=== PATIENT | female | born 1990 | race Caucasian/White ===

== ENCOUNTER 2017-10-21 19:04 | Emergency (ER) | payer OTHER ==
[~2017-10-21] VITALS: Ht 175.3 cm; Wt 140.6 kg
[~2017-10-21 19:04] MED LIST: BENZ100A PO; CETI5 PO; CITA20 PO; CLARITIN10 MG PO; DOCU100 PO; ENOX100I SC; ENOX120I SC; IBUP600 PO; IBUP800 PO; LISI20 PO; METF850 PO; OXYACE5T PO; PROM25 PO; Verotin-Gr Cap1 EACH PO
[2017-10-21] MEDS ORDERED: MEDR10 PO (21:06)
== END 2017-10-21 22:28 | disposition home or self-care (01) ==
LOC: ER 19:04
DX: G43.909 Migraine, unspecified, not intractable, without status migrainosus (principal); I10 Essential (primary) hypertension; F41.9 Anxiety disorder, unspecified; F32.9 Major depressive disorder, single episode, unspecified; F17.210 Nicotine dependence, cigarettes, uncomplicated; Z86.711 Personal history of pulmonary embolism; Z90.89 Acquired absence of other organs; Z88.8 Allergy status to other drugs, medicaments and biological substances; Z91.048 Other nonmedicinal substance allergy status; Z79.899 Other long term (current) drug therapy
CPT/HCPCS: 36415; 96361; 96374; 96375; 99284; J1170; J1200; J1885; J2550; J7030

== ENCOUNTER 2017-10-22 19:49 | Emergency (ER) | payer OTHER ==
[~2017-10-22] VITALS: Ht 175.3 cm; Wt 140.6 kg
[2017-10-22 19:12] LABS: Source, Urine Clean Catch
[2017-10-22 19:23] LABS: Appearance, Urine Clear (Clear); Bilirubin, Urine Neg (Neg); Blood, Urine 2+ (Neg); Color, Urine Yellow (P-Yellow); Glucose Qualitative, Urine 2+ (Neg); Ketones, Urine Neg (Neg); Leukocyte Esterase, Urine 1+ (Neg); Nitrite, Urine Neg (Neg); Protein, Urine 1+ (Neg); Specific Gravity, Urine 1.025 (1.003-1.022); Urobilinogen, Urine NORM (Normal)
[2017-10-22 19:43] LABS: Bacteria Not Seen /hpf; Red Blood Cells, Urine Not Seen /hpf (0-2); Squamous Epithelial Cells Not Seen /hpf (Few); White Blood Cells, Urine Not Seen /hpf (0-5)
[~2017-10-22 19:49] MED LIST changes: +MEDR10 PO
== END 2017-10-22 21:40 | disposition home or self-care (01) ==
LOC: ER 19:49
PROVIDERS: Emergency Medicine
DX: G43.909 Migraine, unspecified, not intractable, without status migrainosus (principal); F41.9 Anxiety disorder, unspecified; I10 Essential (primary) hypertension; F32.9 Major depressive disorder, single episode, unspecified; F17.210 Nicotine dependence, cigarettes, uncomplicated
CPT/HCPCS: 81001; 81025; 87086; 96361; 96374; 96375; 96376; 99284; J1170; J1200; J1885; J2550; J7030

== ENCOUNTER → 2017-11-08 | Outpatient (CLI) | payer OTHER ==
[~2017-11-08] MED LIST changes: +AMOCLA500 PO; +CYCL10 PO; +DICL25ER PO; +Keflex500 MG PO; +LETR2.5 PO; +METF500C PO; +PREPLUS CA-FE1 EACH PO; +Phenergan25 M1 PO; +Prednisone20 MG PO; +RANI150 PO; +SUCR1 PO; +Ultram50 MG PO
== END | disposition home or self-care (01) ==
LOC: LAB 14:03
DX: J02.9 Acute pharyngitis, unspecified (principal)
CPT/HCPCS: 87070

== ENCOUNTER 2017-12-03 10:38 | Emergency (ER) | payer OTHER ==
[~2017-12-03] VITALS: Ht 175.3 cm; Wt 142.9 kg
[~2017-12-03 10:38] MED LIST changes: -AMOCLA500 PO; -CYCL10 PO; -DICL25ER PO; -Keflex500 MG PO; -LETR2.5 PO; -METF500C PO; -PREPLUS CA-FE1 EACH PO; -Phenergan25 M1 PO; -Prednisone20 MG PO; -RANI150 PO; -SUCR1 PO; -Ultram50 MG PO
[2017-12-03] MEDS ORDERED: METF500C PO (10:54)
[2017-12-03 12:02] LABS: BASOPHILS ABSOLUTE AUTO 0.05 K/mm3 (0.00-0.23); BASOPHILS PERCENT AUTO 1 % (0-2); EOSINOPHILS ABSOLUTE AUTO 0.09 K/mm3 (0.00-0.68); EOSINOPHILS PERCENT AUTO 2 % (0-6); Hematocrit 43.5 % (33.0-51.0); Hemoglobin 13.8 g/dL (11.5-16.0); IMMATURE GRAN ABSOLUTE AUTO 0.02 K/mm3 (0.00-0.10); IMMATURE GRAN PERCENT AUTO 0 % (0-1); LYMPHOCYTES ABSOLUTE AUTO 1.07 K/mm3 (0.84-5.20); LYMPHOCYTES PERCENT AUTO 18 % (21-46); MONOCYTES ABSOLUTE AUTO 0.49 K/mm3 (0.16-1.47); MONOCYTES PERCENT AUTO 8 % (4-13); Mean Corpuscular HGB 25.7 pg (26.0-34.0); Mean Corpuscular HGB Conc 31.7 g/dL (31.5-36.5); Mean Corpuscular Volume 81 fL (80-100); Mean Platelet Volume 10.6 fL (9.1-12.4); NEUTROPHILS ABSOLUTE AUTO 4.13 K/mm3 (1.96-9.15); NEUTROPHILS PERCENT AUTO 71 % (41-73); Platelet Count 249 K/mm3 (150-400); RDW Standard Deviation 43.8 fL (35.1-46.3); Red Blood Cell Count 5.38 M/mm3 (3.80-5.20); White Blood Cell Count 5.85 K/mm3 (4.00-11.30)
[2017-12-03 12:20] LABS: Alanine Aminotransfer (ALT/SGP 54 U/L (12-78); Albumin, Blood 3.4 g/dL (3.4-5.0); Albumin/Globulin Ratio 0.9 (0.8-1.8); Alk Phos 127 U/L (50-136); Anion Gap 8 mmol/L (6-16); Aspartate Aminotrans (AST/SGOT 22 U/L (12-37); Bilirubin, Total 0.6 mg/dL (0.1-1.0); Blood Urea Nitrogen 12 mg/dL (8-24); Bun/Creatinine Ratio 17.9 (12.0-20.0); CO2, Blood 21 mmol/L (21-32); Calcium, Blood 8.8 mg/dL (8.5-10.1); Chloride, Blood 108 mmol/L (98-108); Creatinine, Blood 0.67 mg/dL (0.40-1.00); Globulin, Blood 3.9 g/dL (2.2-4.0); Glomerular Filtration Rate >60 (60-); Glucose, Blood 100 mg/dL (70-99); Potassium, Blood 3.9 mmol/L (3.5-5.5); Sodium, Blood 137 mmol/L (136-145); Total Protein, Blood 7.3 g/dL (6.4-8.2)
[2017-12-03] MEDS ORDERED: SUCR1 PO (13:33)
[2017-12-03] MEDS ORDERED: Keflex500 MG PO (13:33)
[2017-12-03] MEDS ORDERED: Phenergan25 M1 PO (13:33)
== END 2017-12-03 14:16 | disposition home or self-care (01) ==
LOC: ER 10:38
PROVIDERS: Psychiatry & Neurology Psychiatry
DX: R11.2 Nausea with vomiting, unspecified (principal); R10.12 Left upper quadrant pain; I10 Essential (primary) hypertension; F32.9 Major depressive disorder, single episode, unspecified; F41.9 Anxiety disorder, unspecified; E11.9 Type 2 diabetes mellitus without complications; F17.210 Nicotine dependence, cigarettes, uncomplicated; Z91.048 Other nonmedicinal substance allergy status; Z88.8 Allergy status to other drugs, medicaments and biological substances; Z88.6 Allergy status to analgesic agent; Z79.84 Long term (current) use of oral hypoglycemic drugs; Z79.899 Other long term (current) drug therapy
CPT/HCPCS: 36415; 80053; 81025; 83690; 85025; 87086; 96361; 96372; 96374; 96375; 99284; J2405; J2550; J3010; J7030

== ENCOUNTER 2017-12-12 21:42 | Emergency (ER) | payer OTHER ==
[~2017-12-12] VITALS: Ht 175.3 cm; Wt 145.2 kg
[~2017-12-12 21:42] MED LIST changes: +Keflex500 MG PO; +METF500C PO; +Phenergan25 M1 PO; +SUCR1 PO
[2017-12-12] MEDS ORDERED: RANI150 PO (21:51)
[2017-12-12] MEDS ORDERED: Ultram50 MG PO (23:30)
[2017-12-12] MEDS ORDERED: CYCL10 PO (23:30)
[2017-12-13] MEDS ORDERED: Prednisone20 MG PO (00:25)
== END 2017-12-13 01:34 | disposition home or self-care (01) ==
LOC: ER 21:42
DX: M54.41 Lumbago with sciatica, right side (principal); Z88.8 Allergy status to other drugs, medicaments and biological substances; Z79.899 Other long term (current) drug therapy; Z79.84 Long term (current) use of oral hypoglycemic drugs; G43.909 Migraine, unspecified, not intractable, without status migrainosus; I10 Essential (primary) hypertension; F32.9 Major depressive disorder, single episode, unspecified; F41.9 Anxiety disorder, unspecified; F17.210 Nicotine dependence, cigarettes, uncomplicated
CPT/HCPCS: 96372; 99283; J1200; J1885

== ENCOUNTER 2018-03-20 11:58 | Emergency (ER) | payer OTHER ==
[~2018-03-20] VITALS: Ht 175.3 cm; Wt 145.2 kg
[~2018-03-20 11:58] MED LIST changes: +CYCL10 PO; +Prednisone20 MG PO; +RANI150 PO; +Ultram50 MG PO
[2018-03-20] MEDS ORDERED: LETR2.5 PO (12:10)
[2018-03-20] MEDS ORDERED: PREPLUS CA-FE1 EACH PO (12:11)
[2018-03-20] MEDS ORDERED: AMOCLA500 PO (12:11)
== END 2018-03-20 18:15 | disposition home or self-care (01) ==
LOC: ER 11:58
DX: G43.909 Migraine, unspecified, not intractable, without status migrainosus (principal); Z91.048 Other nonmedicinal substance allergy status; Z88.8 Allergy status to other drugs, medicaments and biological substances; Z79.899 Other long term (current) drug therapy; Z79.2 Long term (current) use of antibiotics; I10 Essential (primary) hypertension; F32.9 Major depressive disorder, single episode, unspecified; F41.9 Anxiety disorder, unspecified; F17.210 Nicotine dependence, cigarettes, uncomplicated
CPT/HCPCS: 70450; 96361; 96374; 96375; 99284; J1100; J1200; J1885; J2765; J7030

== ENCOUNTER 2018-05-30 19:49 | Emergency (ER) | payer OTHER ==
[~2018-05-30] VITALS: Ht 175.3 cm; Wt 142.9 kg
[~2018-05-30 19:49] MED LIST changes: +AMOCLA500 PO; +LETR2.5 PO; +PREPLUS CA-FE1 EACH PO
[2018-05-30] MEDS ORDERED: DICL25ER PO (20:21)
[2018-05-30] MEDS ORDERED: CLARITIN10 MG PO (20:21)
[2018-05-30] MEDS ORDERED: IBUP600 PO (20:23)
[2018-05-30 20:34] LABS: BASOPHILS ABSOLUTE AUTO 0.04 K/mm3 (0.00-0.23); BASOPHILS PERCENT AUTO 1 % (0-2); EOSINOPHILS ABSOLUTE AUTO 0.12 K/mm3 (0.00-0.68); EOSINOPHILS PERCENT AUTO 2 % (0-6); Hemoglobin 13.6 g/dL (11.5-16.0); IMMATURE GRAN ABSOLUTE AUTO 0.02 K/mm3 (0.00-0.10); IMMATURE GRAN PERCENT AUTO 0 % (0-1); LYMPHOCYTES ABSOLUTE AUTO 2.29 K/mm3 (0.84-5.20); LYMPHOCYTES PERCENT AUTO 31 % (21-46); MONOCYTES ABSOLUTE AUTO 0.58 K/mm3 (0.16-1.47); MONOCYTES PERCENT AUTO 8 % (4-13); Mean Corpuscular HGB 26.5 pg (26.0-34.0); Mean Corpuscular HGB Conc 32.4 g/dL (31.5-36.5); Mean Corpuscular Volume 82 fL (80-100); Mean Platelet Volume 11.1 fL (9.1-12.4); NEUTROPHILS PERCENT AUTO 59 % (41-73); Platelet Count 264 K/mm3 (150-400); RDW Coefficient Variation 13.3 % (11.7-14.2); RDW Standard Deviation 39.8 fL (35.1-46.3); Red Blood Cell Count 5.14 M/mm3 (3.80-5.20); White Blood Cell Count 7.45 K/mm3 (4.00-11.30)
[2018-05-30 21:11] LABS: Alanine Aminotransfer (ALT/SGP 68 U/L (12-78); Albumin, Blood 3.5 g/dL (3.4-5.0); Alk Phos 122 U/L (50-136); Anion Gap 10 mmol/L (6-16); Aspartate Aminotrans (AST/SGOT 31 U/L (12-37); Bilirubin, Total 0.3 mg/dL (0.1-1.0); Blood Urea Nitrogen 14 mg/dL (8-24); Bun/Creatinine Ratio 12.3 (12.0-20.0); CO2, Blood 26 mmol/L (21-32); Chloride, Blood 104 mmol/L (98-108); Creatinine, Blood 1.14 mg/dL (0.40-1.00); Globulin, Blood 3.5 g/dL (2.2-4.0); Glomerular Filtration Rate 59 (60-); Glucose, Blood 120 mg/dL (70-99); Potassium, Blood 3.4 mmol/L (3.5-5.5); Sodium, Blood 140 mmol/L (136-145); Troponin I <0.015 ng/mL (0.000-0.040)
== END 2018-05-30 22:12 | disposition home or self-care (01) ==
LOC: ER 19:49
PROVIDERS: Emergency Medicine
DX: I80.01 Phlebitis and thrombophlebitis of superficial vessels of right lower extremity (principal); F41.9 Anxiety disorder, unspecified; R07.89 Other chest pain; E87.6 Hypokalemia; I10 Essential (primary) hypertension; F17.200 Nicotine dependence, unspecified, uncomplicated; Z91.048 Other nonmedicinal substance allergy status; Z88.8 Allergy status to other drugs, medicaments and biological substances; Z88.6 Allergy status to analgesic agent
CPT/HCPCS: 36415; 71046; 80053; 81000; 81025; 84484; 85025; 93005; 93010; 96374; 96375; 99284-25; J1885; J2060

== ENCOUNTER 2018-10-17 17:45 | Emergency (ER) | payer OTHER ==
[~2018-10-17] VITALS: Ht 175.3 cm; Wt 142.9 kg
[~2018-10-17 17:45] MED LIST changes: +DICL25ER PO
[2018-10-17] MEDS ORDERED: LORA.5 PO (18:28)
[2018-10-17] MEDS ORDERED: GABA300 PO (18:28)
[2018-10-17 21:44] LABS: Source, Urine Clean Catch
[2018-10-17 21:49] LABS: BASOPHILS ABSOLUTE AUTO 0.07 K/mm3 (0.00-0.23); BASOPHILS PERCENT AUTO 1 % (0-2); EOSINOPHILS ABSOLUTE AUTO 0.12 K/mm3 (0.00-0.68); EOSINOPHILS PERCENT AUTO 1 % (0-6); Hematocrit 42.4 % (33.0-51.0); Hemoglobin 13.7 g/dL (11.5-16.0); IMMATURE GRAN ABSOLUTE AUTO 0.02 K/mm3 (0.00-0.10); IMMATURE GRAN PERCENT AUTO 0 % (0-1); LYMPHOCYTES ABSOLUTE AUTO 2.52 K/mm3 (0.84-5.20); LYMPHOCYTES PERCENT AUTO 30 % (21-46); MONOCYTES ABSOLUTE AUTO 0.48 K/mm3 (0.16-1.47); MONOCYTES PERCENT AUTO 6 % (4-13); Mean Corpuscular HGB Conc 32.3 g/dL (31.5-36.5); Mean Corpuscular Volume 84 fL (80-100); NEUTROPHILS PERCENT AUTO 62 % (41-73); RDW Coefficient Variation 13.8 % (11.7-14.2); RDW Standard Deviation 42.4 fL (35.1-46.3); Red Blood Cell Count 5.08 M/mm3 (3.80-5.20); White Blood Cell Count 8.51 K/mm3 (4.00-11.30)
[2018-10-17 21:51] LABS: Bilirubin, Urine Neg (Neg); Blood, Urine 1+ (Neg); Glucose Qualitative, Urine Neg (Neg); Ketones, Urine Neg (Neg); Leukocyte Esterase, Urine 1+ (Neg); Mean Platelet Volume 11.1 fL (9.1-12.4); Nitrite, Urine Neg (Neg); Platelet Count 257 K/mm3 (150-400); Protein, Urine Neg (Neg); Urobilinogen, Urine NORM (Normal)
[2018-10-17 21:54] LABS: Appearance, Urine Clear (Clear); Color, Urine Yellow (P-Yellow)
[2018-10-17 21:59] LABS: Amorphous Light (0-Heavy); Bacteria Few /hpf; Mucus Light (0-Heavy); Red Blood Cells, Urine 0-2 /hpf (0-2); White Blood Cells, Urine 0-2 /hpf (0-5)
[2018-10-17 22:00] LABS: Squamous Epithelial Cells Few /hpf (Few)
[2018-10-17 22:06] LABS: Alanine Aminotransfer (ALT/SGP 44 U/L (12-78); Albumin, Blood 3.6 g/dL (3.4-5.0); Alk Phos 123 U/L (50-136); Anion Gap 9 mmol/L (6-16); Aspartate Aminotrans (AST/SGOT 19 U/L (12-37); Bilirubin, Total 0.4 mg/dL (0.1-1.0); Blood Urea Nitrogen 15 mg/dL (8-24); Bun/Creatinine Ratio 21.8 (12.0-20.0); CO2, Blood 25 mmol/L (21-32); Calcium, Blood 8.9 mg/dL (8.5-10.1); Chloride, Blood 105 mmol/L (98-108); Creatinine, Blood 0.69 mg/dL (0.40-1.00); Globulin, Blood 3.7 g/dL (2.2-4.0); Glomerular Filtration Rate >60 (60-); Glucose, Blood 123 mg/dL (70-99); Potassium, Blood 3.7 mmol/L (3.5-5.5); Sodium, Blood 139 mmol/L (136-145); Total Protein, Blood 7.3 g/dL (6.4-8.2)
== END 2018-10-17 22:25 | disposition home or self-care (01) ==
LOC: ER 17:45
PROVIDERS: Emergency Medicine
DX: M54.5 Low back pain (principal); R20.2 Paresthesia of skin; R32 Unspecified urinary incontinence; G43.909 Migraine, unspecified, not intractable, without status migrainosus; I10 Essential (primary) hypertension; F32.9 Major depressive disorder, single episode, unspecified; F41.9 Anxiety disorder, unspecified; F17.200 Nicotine dependence, unspecified, uncomplicated
CPT/HCPCS: 36415; 80053; 81001; 81025; 85025; 87086; 96374; 99284-25; J3010

== ENCOUNTER → 2019-01-07 | Outpatient (CLI) | payer OTHER ==
[~2019-01-07] MED LIST changes: +GABA300 PO; +LORA.5 PO
[2019-01-09 15:07] LABS: HPV 16 Negative (Negative); HPV 18 Negative (Negative); HPV OTHER HR TYPES Negative (Negative)
== END | disposition home or self-care (01) ==
LOC: LAB SHORT 12:24 → LAB 12:24
PROVIDERS: Obstetrics & Gynecology
DX: Z01.419 Encounter for gynecological examination (general) (routine) without abnormal findings (principal)
CPT/HCPCS: 87624; G0123

== ENCOUNTER → 2019-03-28 | Outpatient (CLI) | payer OTHER ==
[~2019-03-28] MED LIST changes: +ACETAMINOPHEN500 MG PO; +ALBU90OI INH; +Citalopram HBr20 MG PO; +Prinivil10 MG PO
== END | disposition home or self-care (01) ==
LOC: LAB 19:13 → LAB SHORT 19:13
DX: J02.9 Acute pharyngitis, unspecified (principal)
CPT/HCPCS: 87081

== ENCOUNTER 2019-06-24 18:57 | Emergency (ER) | payer OTHER ==
[~2019-06-24] VITALS: Ht 175.3 cm; Wt 140.6 kg
[~2019-06-24 18:57] MED LIST changes: -ACETAMINOPHEN500 MG PO; -ALBU90OI INH; -Citalopram HBr20 MG PO; -Prinivil10 MG PO
[2019-06-24] MEDS ORDERED: Prinivil10 MG PO (19:57)
[2019-06-24] MEDS ORDERED: LISI20 PO (19:58)
[2019-06-24] MEDS ORDERED: Citalopram HBr20 MG PO (19:58)
[2019-06-24] MEDS ORDERED: ALBU90OI INH (20:07)
[2019-06-24] MEDS ORDERED: BENZ100A PO (20:07)
[2019-06-24] MEDS ORDERED: ACETAMINOPHEN500 MG PO (20:07)
== END 2019-06-24 20:36 | disposition home or self-care (01) ==
LOC: ER 18:57
DX: J40 Bronchitis, not specified as acute or chronic (principal); Z88.8 Allergy status to other drugs, medicaments and biological substances; Z91.048 Other nonmedicinal substance allergy status; Z79.899 Other long term (current) drug therapy; G43.909 Migraine, unspecified, not intractable, without status migrainosus; I10 Essential (primary) hypertension; F32.9 Major depressive disorder, single episode, unspecified; F17.210 Nicotine dependence, cigarettes, uncomplicated; F17.290 Nicotine dependence, other tobacco product, uncomplicated
CPT/HCPCS: 71046; 96374; 99283-25; J2405

== ENCOUNTER → 2020-01-14 | Outpatient (CLI) | payer OTHER ==
[~2020-01-14] MED LIST changes: +ACETAMINOPHEN500 MG PO; +ALBU90OI INH; +Citalopram HBr20 MG PO; +Prinivil10 MG PO
[2020-01-14 13:41] LABS: Candida species (DNA Probe) Negative (NEGATIVE); G. vaginalis (DNA Probe) Negative (NEGATIVE); T. vaginalis (DNA Probe) Negative (NEGATIVE)
== END | disposition home or self-care (01) ==
LOC: LAB SHORT 10:45 → LAB 10:45
PROVIDERS: Obstetrics & Gynecology
DX: N76.0 Acute vaginitis (principal)
CPT/HCPCS: 87480; 87510; 87660

== ENCOUNTER 2020-05-28 20:47 | Emergency (ER) | payer OTHER ==
[~2020-05-28] VITALS: Ht 175.3 cm; Wt 145.2 kg
[~2020-05-28 20:47] MED LIST changes: +METFORMIN HCL500 M2 PO; +PROP10; +Ventolin/Prove6.7 GM INH
[2020-05-28 21:11] LABS: BASOPHILS ABSOLUTE AUTO 0.07 K/mm3 (0.00-0.23); BASOPHILS PERCENT AUTO 1 % (0-2); EOSINOPHILS ABSOLUTE AUTO 0.17 K/mm3 (0.00-0.68); EOSINOPHILS PERCENT AUTO 2 % (0-6); Hematocrit 44.1 % (33.0-51.0); IMMATURE GRAN ABSOLUTE AUTO 0.02 K/mm3 (0.00-0.10); IMMATURE GRAN PERCENT AUTO 0 % (0-1); LYMPHOCYTES ABSOLUTE AUTO 1.78 K/mm3 (0.84-5.20); LYMPHOCYTES PERCENT AUTO 21 % (21-46); MONOCYTES ABSOLUTE AUTO 0.51 K/mm3 (0.16-1.47); MONOCYTES PERCENT AUTO 6 % (4-13); Mean Corpuscular HGB 27.2 pg (26.0-34.0); Mean Corpuscular HGB Conc 31.7 g/dL (31.5-36.5); Mean Corpuscular Volume 86 fL (80-100); Mean Platelet Volume 10.9 fL (9.1-12.4); NEUTROPHILS ABSOLUTE AUTO 6.08 K/mm3 (1.96-9.15); NEUTROPHILS PERCENT AUTO 71 % (41-73); Platelet Count 295 K/mm3 (150-400); RDW Coefficient Variation 13.8 % (11.7-14.2); Red Blood Cell Count 5.14 M/mm3 (3.80-5.20); White Blood Cell Count 8.63 K/mm3 (4.00-11.30)
[2020-05-28 21:19] LABS: Source, Urine Clean Catch
[2020-05-28 21:21] LABS: Appearance, Urine Hazy (Clear); Bilirubin, Urine Neg (Neg); Blood, Urine 1+ (Neg); Color, Urine Yellow (P-Yellow); Glucose Qualitative, Urine Neg (Neg); Ketones, Urine Neg (Neg); Leukocyte Esterase, Urine 2+ (Neg); Nitrite, Urine Neg (Neg); Protein, Urine Neg (Neg); Urobilinogen, Urine NORM (Normal)
[2020-05-28 21:28] LABS: Amorphous Mod (0-Heavy); Bacteria Mod /hpf; Red Blood Cells, Urine 0-2 /hpf (0-2); Squamous Epithelial Cells Mod /hpf (Few)
[2020-05-28 21:35] LABS: Alanine Aminotransfer (ALT/SGP 42 U/L (12-78); Albumin, Blood 3.3 g/dL (3.4-5.0); Albumin/Globulin Ratio 0.9 (0.8-1.8); Alk Phos 112 U/L (50-136); Anion Gap 7 mmol/L (6-16); Aspartate Aminotrans (AST/SGOT 20 U/L (12-37); Bilirubin, Total 0.3 mg/dL (0.1-1.0); Blood Urea Nitrogen 15 mg/dL (8-24); Bun/Creatinine Ratio 15.4 (12.0-20.0); CO2, Blood 28 mmol/L (21-32); Chloride, Blood 104 mmol/L (98-108); Creatinine, Blood 0.97 mg/dL (0.40-1.00); Globulin, Blood 3.7 g/dL (2.2-4.0); Glomerular Filtration Rate >60 (60-); Glucose, Blood 129 mg/dL (70-99); Potassium, Blood 3.9 mmol/L (3.5-5.5); Sodium, Blood 139 mmol/L (136-145)
[2020-05-29] MEDS ORDERED: ONDA4ODT MM (00:29)
[2020-05-29] MEDS ORDERED: HYDR1TAB94 PO (00:29)
== END 2020-05-29 00:45 | disposition home or self-care (01) ==
LOC: ER 20:47
PROVIDERS: Physician Assistant
DX: K52.9 Noninfective gastroenteritis and colitis, unspecified (principal); I10 Essential (primary) hypertension; F32.9 Major depressive disorder, single episode, unspecified; F41.9 Anxiety disorder, unspecified; F17.210 Nicotine dependence, cigarettes, uncomplicated; F17.290 Nicotine dependence, other tobacco product, uncomplicated
CPT/HCPCS: 36415; 74176; 80053; 81001; 81025; 83690; 85025; 87086; 96374; 96375; 96376; 99284-25; J1885; J2405

== ENCOUNTER 2020-11-08 13:11 | Emergency (ER) | payer OTHER ==
[~2020-11-08] VITALS: Ht 175.3 cm; Wt 149.7 kg
[~2020-11-08 13:11] MED LIST changes: +HYDR1TAB94 PO; +ONDA4ODT MM
[2020-11-08 15:19] LABS: BASOPHILS ABSOLUTE AUTO 0.05 K/mm3 (0.00-0.23); BASOPHILS PERCENT AUTO 1 % (0-2); EOSINOPHILS ABSOLUTE AUTO 0.11 K/mm3 (0.00-0.68); EOSINOPHILS PERCENT AUTO 2 % (0-6); Hemoglobin 14.9 g/dL (11.5-16.0); IMMATURE GRAN ABSOLUTE AUTO 0.01 K/mm3 (0.00-0.10); IMMATURE GRAN PERCENT AUTO 0 % (0-1); LYMPHOCYTES ABSOLUTE AUTO 1.76 K/mm3 (0.84-5.20); LYMPHOCYTES PERCENT AUTO 24 % (21-46); MONOCYTES PERCENT AUTO 8 % (4-13); Mean Corpuscular HGB 26.4 pg (26.0-34.0); Mean Corpuscular HGB Conc 31.7 g/dL (31.5-36.5); Mean Corpuscular Volume 83 fL (80-100); Mean Platelet Volume 11.9 fL (9.1-12.4); NEUTROPHILS ABSOLUTE AUTO 4.96 K/mm3 (1.96-9.15); NEUTROPHILS PERCENT AUTO 66 % (41-73); Platelet Count 270 K/mm3 (150-400); RDW Coefficient Variation 13.9 % (11.7-14.2); RDW Standard Deviation 42.5 fL (35.1-46.3); Red Blood Cell Count 5.64 M/mm3 (3.80-5.20); White Blood Cell Count 7.49 K/mm3 (4.00-11.30)
[2020-11-08 15:38] LABS: Alanine Aminotransfer (ALT/SGP 85 U/L (12-78); Albumin, Blood 3.6 g/dL (3.4-5.0); Albumin/Globulin Ratio 0.9 (0.8-1.8); Alk Phos 126 U/L (50-136); Anion Gap 4 mmol/L (6-16); Aspartate Aminotrans (AST/SGOT 35 U/L (12-37); Bilirubin, Total 0.6 mg/dL (0.1-1.0); Blood Urea Nitrogen 13 mg/dL (8-24); Bun/Creatinine Ratio 17.9 (12.0-20.0); CO2, Blood 29 mmol/L (21-32); Calcium, Blood 9.1 mg/dL (8.5-10.1); Chloride, Blood 106 mmol/L (98-108); Creatinine, Blood 0.73 mg/dL (0.40-1.00); Globulin, Blood 3.9 g/dL (2.2-4.0); Glomerular Filtration Rate >60 (60-); Glucose, Blood 137 mg/dL (70-99); Potassium, Blood 3.6 mmol/L (3.5-5.5); Sodium, Blood 139 mmol/L (136-145); Total Protein, Blood 7.5 g/dL (6.4-8.2)
[2020-11-08] MEDS ORDERED: NYSTATIN15 GM TOP (18:48)
[2021-01-31] MEDS ORDERED: Macrobid 100 M100 MG PO (22:34)
== END 2020-11-08 19:18 | disposition home or self-care (01) ==
LOC: ER 13:11
PROVIDERS: Physician Assistant
DX: B37.2 Candidiasis of skin and nail (principal); I10 Essential (primary) hypertension; F17.200 Nicotine dependence, unspecified, uncomplicated; Z79.84 Long term (current) use of oral hypoglycemic drugs; Z79.899 Other long term (current) drug therapy; Z91.09 Other allergy status, other than to drugs and biological substances; Z88.6 Allergy status to analgesic agent; Z88.8 Allergy status to other drugs, medicaments and biological substances
CPT/HCPCS: 36415; 80053; 83605; 85025; 86140; 99284; A9270

== ENCOUNTER 2020-12-23 19:07 | Emergency (ER) | payer OTHER ==
[~2020-12-23] VITALS: Ht 175.3 cm; Wt 149.7 kg
[~2020-12-23 19:07] MED LIST changes: +NYSTATIN15 GM TOP
[2020-12-23] MEDS ORDERED: HYDCHL25 PO (19:59)
[2020-12-23] MEDS ORDERED: CITALOPRAM HBR40 M1 PO (19:59)
[2020-12-23] MEDS ORDERED: CYCL10 PO (20:44)
[2020-12-23] MEDS ORDERED: HYDR1TAB94 PO (20:44)
[2020-12-23] MEDS ORDERED: LIDO700A20 TOP (20:44)
[2021-01-31] MEDS ORDERED: Macrobid 100 M100 MG PO (22:34)
== END 2020-12-23 20:46 | disposition home or self-care (01) ==
LOC: ER 19:07
DX: M54.10 Radiculopathy, site unspecified (principal); M25.551 Pain in right hip; G89.29 Other chronic pain; I10 Essential (primary) hypertension; Z91.09 Other allergy status, other than to drugs and biological substances; Z88.8 Allergy status to other drugs, medicaments and biological substances; Z88.6 Allergy status to analgesic agent; Z79.899 Other long term (current) drug therapy
CPT/HCPCS: 73502; 99283-25; A9270

== ENCOUNTER → 2021-11-02 | Outpatient (CLI) | payer OTHER ==
[~2021-11-02] MED LIST changes: +CITALOPRAM HBR40 M1 PO; +HYDCHL25 PO; +LIDO700A20 TOP; +Macrobid 100 M100 MG PO
[2021-11-04 12:03] LABS: CORONAVIRUS (COVID19) CSH-NRL Negative (Negative)
== END | disposition home or self-care (01) ==
LOC: LAB SHORT 19:21
PROVIDERS: Physician Assistant Medical
DX: Z20.822 Contact with and (suspected) exposure to COVID-19 (principal)
CPT/HCPCS: U0003

== ENCOUNTER 2022-04-16 23:12 | Emergency (ER) | payer OTHER ==
[~2022-04-16] VITALS: Ht 175.3 cm; Wt 154.2 kg
== END 2022-04-16 23:33 | disposition home or self-care (01) ==
LOC: ER 23:12
DX: I83.892 Varicose veins of left lower extremity with other complications (principal); I10 Essential (primary) hypertension; F17.210 Nicotine dependence, cigarettes, uncomplicated; F17.290 Nicotine dependence, other tobacco product, uncomplicated; Z86.711 Personal history of pulmonary embolism
CPT/HCPCS: 99282

== ENCOUNTER 2022-05-11 20:43 | Emergency (ER) | payer OTHER ==
[~2022-05-11] VITALS: Ht 175.3 cm; Wt 157.4 kg
[2022-05-12] MEDS ORDERED: XARELTO1 EAC1 PO (00:48)
== END 2022-05-12 01:00 | disposition home or self-care (01) ==
LOC: ER 20:43
DX: I82.4Z1 Acute embolism and thrombosis of unspecified deep veins of right distal lower extremity (principal); I10 Essential (primary) hypertension; F17.200 Nicotine dependence, unspecified, uncomplicated; Z79.899 Other long term (current) drug therapy
CPT/HCPCS: 93005; 93010; 93971; 99284-25; A9270

== ENCOUNTER 2022-05-15 10:35 | Emergency (ER) | payer OTHER ==
[~2022-05-15] VITALS: Ht 175.3 cm; Wt 154.7 kg
[~2022-05-15 10:35] MED LIST changes: +XARELTO1 EAC1 PO
== END 2022-05-15 14:47 | disposition home or self-care (01) ==
LOC: ER 10:35
DX: R07.89 Other chest pain (principal); F17.210 Nicotine dependence, cigarettes, uncomplicated; F17.290 Nicotine dependence, other tobacco product, uncomplicated
CPT/HCPCS: 36415; 83880; 84484; 93005; 93010; 93306

== ENCOUNTER 2022-05-25 13:12 | Emergency (ER) | payer OTHER ==
[~2022-05-25] VITALS: Ht 175.3 cm; Wt 154.2 kg
[2022-05-25] MEDS ORDERED: Lisinopril-Hct1 EAC4 PO (13:30)
[2022-05-25] MEDS ORDERED: Amlodipine Bes2.5 MG PO (13:31)
[2022-05-25 13:50] LABS: BASOPHILS ABSOLUTE AUTO 0.07 K/mm3 (0.00-0.23); BASOPHILS PERCENT AUTO 1 % (0-2); EOSINOPHILS ABSOLUTE AUTO 0.09 K/mm3 (0.00-0.68); EOSINOPHILS PERCENT AUTO 1 % (0-6); Hematocrit 43.9 % (33.0-51.0); Hemoglobin 14.4 g/dL (11.5-16.0); IMMATURE GRAN ABSOLUTE AUTO 0.01 K/mm3 (0.00-0.10); IMMATURE GRAN PERCENT AUTO 0 % (0-1); LYMPHOCYTES ABSOLUTE AUTO 2.06 K/mm3 (0.84-5.20); LYMPHOCYTES PERCENT AUTO 27 % (21-46); MONOCYTES ABSOLUTE AUTO 0.54 K/mm3 (0.16-1.47); MONOCYTES PERCENT AUTO 7 % (4-13); Mean Corpuscular HGB 27.1 pg (26.0-34.0); Mean Corpuscular HGB Conc 32.8 g/dL (31.5-36.5); Mean Corpuscular Volume 83 fL (80-100); Mean Platelet Volume 11.7 fL (9.1-12.4); NEUTROPHILS PERCENT AUTO 64 % (41-73); Platelet Count 285 K/mm3 (150-400); RDW Coefficient Variation 13.5 % (11.7-14.2); RDW Standard Deviation 40.5 fL (35.1-46.3); Red Blood Cell Count 5.32 M/mm3 (3.80-5.20); White Blood Cell Count 7.77 K/mm3 (4.00-11.30)
[2022-05-25 14:02] LABS: Albumin, Blood 3.3 g/dL (3.4-5.0); Albumin/Globulin Ratio 0.9 (0.8-1.8); Bilirubin, Total 0.4 mg/dL (0.1-1.0); Bun/Creatinine Ratio 16.1 (12.0-20.0); Calcium, Blood 9.6 mg/dL (8.5-10.1); Creatinine, Blood 0.68 mg/dL (0.40-1.00); Globulin, Blood 3.6 g/dL (2.2-4.0); Potassium, Blood 3.5 mmol/L (3.5-5.5); Total Protein, Blood 6.9 g/dL (6.4-8.2)
[2022-05-25] MEDS ORDERED: ENOXAPARIN150 MG/1 M SC (16:54)
== END 2022-05-25 17:39 | disposition home or self-care (01) ==
LOC: ER 13:12
PROVIDERS: Emergency Medicine
DX: I26.99 Other pulmonary embolism without acute cor pulmonale (principal); I10 Essential (primary) hypertension; F17.200 Nicotine dependence, unspecified, uncomplicated; Z79.899 Other long term (current) drug therapy; Z79.01 Long term (current) use of anticoagulants; Z88.6 Allergy status to analgesic agent; Z88.8 Allergy status to other drugs, medicaments and biological substances; Z91.09 Other allergy status, other than to drugs and biological substances; Z86.718 Personal history of other venous thrombosis and embolism
CPT/HCPCS: 71046; 71260; 80053; 84484; 85025; 93005; 93010; 96372; 96374; 99285-25; J1650; J2270; J2405; Q9967

== ENCOUNTER → 2022-06-08 | Outpatient (CLI) | payer OTHER ==
[~2022-06-08] MED LIST changes: +Amlodipine Bes2.5 MG PO; +ENOXAPARIN150 MG/1 M SC; +Lisinopril-Hct1 EAC4 PO
== END | disposition home or self-care (01) ==
LOC: LAB SHORT 09:20 → LAB 09:20
DX: D68.59 Other primary thrombophilia (principal)
CPT/HCPCS: 82533

== ENCOUNTER → 2022-06-09 | Outpatient (CLI) | payer OTHER | END | disposition home or self-care (01) | LOC: LAB 17:59 → LAB SHORT 17:59 | PROVIDERS: Family Medicine | DX: D68.61 Antiphospholipid syndrome (principal) | CPT/HCPCS: 85651; 86140 ==

== ENCOUNTER → 2022-08-30 | Outpatient (CLI) | payer OTHER | END | disposition home or self-care (01) | LOC: LAB 14:51 → LAB SHORT 14:51 | PROVIDERS: Internal Medicine Endocrinology, Diabetes & Metabolism | DX: E66.01 Morbid (severe) obesity due to excess calories (principal) | CPT/HCPCS: 81050; 82570 ==

== ENCOUNTER 2022-09-20 07:15 | Day surgery (SDC) | payer OTHER ==
[~2022-09-20] VITALS: Ht 175.3 cm; Wt 158.0 kg
[~2022-09-20 07:15] MED LIST changes: +Bisoprolol Fumar5 MG PO; +Camila0.35 MG PO; +NIFE30ER PO
[2022-09-20] MEDS ORDERED: ATOR40TA PO (07:39)
--- NOTE | 2022-09-20 10:20 | NUR ---
PT TO RECOVERY ROOM POST PROCEDURE. PT AWAKE AND CONVERSING APPROPRIATELY; DENIES CHEST PAIN POST PROCEDURE. MONITOR SR 70'S, B/P 126/77, SPO2 98% RA, AFEBRILE. R RADIAL SITE NO SWELLING/HEMATOMA, TR BAND IN PLACE 9 ML AIR; RUE POSITIVE PLEUTH POST TR BAND PLACEMENT. PT REPORTS DISCOMFORT IN R WRSIT, BUT IMPROVING 3/10-DENIES THE NEED FOR INTERVENTION. PT TAKING FLUIDS WITHOUT PROBLEM.
--- NOTE | 2022-09-20 12:06 | NUR ---
TR BAND FULLY DEFLATED, R RADIAL WITHOUT S/S OF BLEEDING, SWELLING OR HEMATOMA.
--- NOTE | 2022-09-20 12:45 | NUR ---
aptient verbalized understanding of discharge instructions and precautions. TR band removed from right radial artery. site soft and nontender. no bleeding, no hematoma. 2x2 with coban placed and wrist borad placed to right wrist. iv site dced with catheter intact.no further questions. patient transferred via wheel chair to car. driving
== END 2022-09-20 12:40 | disposition home or self-care (01) ==
LOC: MHTC 07:15
DX: R07.9 Chest pain, unspecified (principal); I20.9 Angina pectoris, unspecified; E11.9 Type 2 diabetes mellitus without complications; E66.01 Morbid (severe) obesity due to excess calories; I10 Essential (primary) hypertension; F17.200 Nicotine dependence, unspecified, uncomplicated
CPT/HCPCS: 76937; 84703; 93454; 99152; 99153; A9270; C1769; C1887; C1894; J1644; J2250; J2370; J3010; J7030; J7050; Q9967

== ENCOUNTER → 2022-12-27 | Outpatient (CLI) | payer OTHER ==
[~2022-12-27] MED LIST changes: +AMOCLA875 PO; +ATOR40TA PO; +LORA10ER PO; +METF500 PO; +Synthroid200 MCG PO; +VITAMIN D310 MC4 PO; +XARELTO20 MG PO
[2022-12-27 17:07] LABS: BASOPHILS ABSOLUTE AUTO 0.06 K/mm3 (0.00-0.23); BASOPHILS PERCENT AUTO 1 % (0-2); EOSINOPHILS ABSOLUTE AUTO 0.06 K/mm3 (0.00-0.68); EOSINOPHILS PERCENT AUTO 1 % (0-6); Hematocrit 46.7 % (33.0-51.0); IMMATURE GRAN ABSOLUTE AUTO 0.01 K/mm3 (0.00-0.10); IMMATURE GRAN PERCENT AUTO 0 % (0-1); LYMPHOCYTES ABSOLUTE AUTO 1.78 K/mm3 (0.84-5.20); LYMPHOCYTES PERCENT AUTO 24 % (21-46); MONOCYTES ABSOLUTE AUTO 0.58 K/mm3 (0.16-1.47); MONOCYTES PERCENT AUTO 8 % (4-13); Mean Corpuscular HGB 27.8 pg (26.0-34.0); Mean Corpuscular HGB Conc 32.1 g/dL (31.5-36.5); Mean Corpuscular Volume 87 fL (80-100); Mean Platelet Volume 11.9 fL (9.1-12.4); NEUTROPHILS ABSOLUTE AUTO 4.86 K/mm3 (1.96-9.15); NEUTROPHILS PERCENT AUTO 66 % (41-73); Platelet Count 318 K/mm3 (150-400); RDW Coefficient Variation 14.3 % (11.7-14.2); RDW Standard Deviation 45.1 fL (35.1-46.3); White Blood Cell Count 7.35 K/mm3 (4.00-11.30)
[2022-12-27 20:15] LABS: Albumin, Blood 3.8 g/dL (3.4-5.0); Albumin/Globulin Ratio 1.1 (0.8-1.8); Bilirubin, Total 0.9 mg/dL (0.1-1.0); Bun/Creatinine Ratio 21.7 (12.0-20.0); Calcium, Blood 9.6 mg/dL (8.5-10.1); Creatinine, Blood 0.83 mg/dL (0.40-1.00); Free Thyroxine 2.01 ng/dL (0.70-1.60); Globulin, Blood 3.4 g/dL (2.2-4.0); Thyroid Stimulating Hormone 0.194 uIU/mL (0.360-4.800); Total Protein, Blood 7.2 g/dL (6.4-8.2); Triiodothyronine, Free 2.54 pg/mL (2.18-3.98)
== END | disposition home or self-care (01) ==
LOC: LAB 14:22 → LAB SHORT 14:22
PROVIDERS: Family Medicine
DX: N92.5 Other specified irregular menstruation (principal); E11.9 Type 2 diabetes mellitus without complications; Z90.89 Acquired absence of other organs; Z79.899 Other long term (current) drug therapy
CPT/HCPCS: 80053; 83036; 84439; 84443; 84481; 84703; 85025

== ENCOUNTER → 2023-07-10 | Outpatient (CLI) | payer OTHER ==
[2023-07-10 14:30] LABS: Albumin, Blood 3.5 g/dL (3.4-5.0); Albumin/Globulin Ratio 0.9 (0.8-1.8); Bilirubin, Total 0.6 mg/dL (0.1-1.0); Calcium, Blood 9.3 mg/dL (8.5-10.1); Creatinine, Blood 0.74 mg/dL (0.40-1.00); Free Thyroxine 1.27 ng/dL (0.70-1.60); Potassium, Blood 3.5 mmol/L (3.5-5.5); Thyroid Stimulating Hormone 7.72 uIU/mL (0.360-4.800); Total Protein, Blood 7.5 g/dL (6.4-8.2); Triiodothyronine, Free 2.34 pg/mL (2.18-3.98)
[2023-07-16 12:10] LABS: ANTI-THYROGLOBULIN ANTIBODIES <1.0 IU/mL (.); THYROGLOBULIN (ICMA) 2.1 ng/mL (.)
== END ==
LOC: LAB SHORT 12:01 → LAB 12:01
PROVIDERS: Family Medicine
DX: E03.9 Hypothyroidism, unspecified (principal); B37.2 Candidiasis of skin and nail; Z85.850 Personal history of malignant neoplasm of thyroid
CPT/HCPCS: 80053; 84432; 84439; 84443; 84481; 86800

== ENCOUNTER → 2023-08-01 | Outpatient (CLI) | payer OTHER ==
[2023-08-01 15:29] LABS: Candida species (DNA Probe) Negative (NEGATIVE); G. vaginalis (DNA Probe) Negative (NEGATIVE); T. vaginalis (DNA Probe) Negative (NEGATIVE)
== END | disposition home or self-care (01) ==
LOC: LAB SHORT 12:03 → LAB 12:03
PROVIDERS: Advanced Practice Midwife
DX: N76.0 Acute vaginitis (principal)
CPT/HCPCS: 87480; 87510; 87660

== ENCOUNTER → 2023-09-28 | Outpatient (CLI) | payer OTHER ==
[2023-10-07 06:56] LABS: CORTISOL,SALIVA <0.025 ug/dL
[2023-10-07 06:56] LABS: CORTISOL,SALIVA <0.025 ug/dL
[2023-10-07 06:56] LABS: CORTISOL,SALIVA <0.025 ug/dL
== END ==
LOC: LAB 11:41 → LAB SHORT 11:41
PROVIDERS: Family Medicine
DX: E24.2 Drug-induced Cushing's syndrome (principal)
CPT/HCPCS: 82533

== ENCOUNTER → 2023-10-03 | Outpatient (CLI) | payer OTHER ==
[2023-10-03 17:53] LABS: BASOPHILS ABSOLUTE AUTO 0.08 K/mm3 (0.00-0.23); BASOPHILS PERCENT AUTO 1 % (0-2); EOSINOPHILS ABSOLUTE AUTO 0.13 K/mm3 (0.00-0.68); EOSINOPHILS PERCENT AUTO 1 % (0-6); Hematocrit 47.9 % (33.0-51.0); Hemoglobin 15.5 g/dL (11.5-16.0); IMMATURE GRAN ABSOLUTE AUTO 0.03 K/mm3 (0.00-0.10); IMMATURE GRAN PERCENT AUTO 0 % (0-1); LYMPHOCYTES ABSOLUTE AUTO 2.12 K/mm3 (0.84-5.20); LYMPHOCYTES PERCENT AUTO 21 % (21-46); MONOCYTES ABSOLUTE AUTO 0.62 K/mm3 (0.16-1.47); MONOCYTES PERCENT AUTO 6 % (4-13); Mean Corpuscular HGB 27.6 pg (26.0-34.0); Mean Corpuscular HGB Conc 32.4 g/dL (31.5-36.5); Mean Corpuscular Volume 85 fL (80-100); Mean Platelet Volume 11.2 fL (9.1-12.4); NEUTROPHILS ABSOLUTE AUTO 6.93 K/mm3 (1.96-9.15); NEUTROPHILS PERCENT AUTO 70 % (41-73); Platelet Count 324 K/mm3 (150-400); RDW Coefficient Variation 14.3 % (11.7-14.2); RDW Standard Deviation 43.8 fL (35.1-46.3); Red Blood Cell Count 5.62 M/mm3 (3.80-5.20); White Blood Cell Count 9.91 K/mm3 (4.00-11.30)
[2023-10-05 09:13] LABS: A/G RATIO 1.7 (1.2-2.2); BILIRUBIN, TOTAL 0.5 mg/dL (0.0-1.2); CALCIUM, SERUM 9.2 mg/dL (8.7-10.2); CREATININE, SERUM 0.77 mg/dL (0.57-1.00); GLOBULIN, TOTAL 2.5 g/dL (1.5-4.5); POTASSIUM, SERUM 4.4 mmol/L (3.5-5.2); PROTEIN, TOTAL, SERUM 6.8 g/dL (6.0-8.5)
[2023-10-06 04:32] LABS: DEAMIDATED GLIADIN PEPTIDE,IGA <0.72 FLU (0.00-4.99); TISSUE TRANSGLUTAMINAS TTG,IGA <1.02 FLU (0.00-4.99)
[2023-10-06 14:26] LABS: DEAMIDATED GLIADIN PEPTIDE,IGG <0.56 FLU (0.00-4.99); TISSUE TRANSGLUTAMINASE AB,IGG <0.82 FLU (0.00-4.99)
== END | disposition home or self-care (01) ==
LOC: LAB SHORT 16:50 → LAB 16:50
PROVIDERS: Family Medicine
DX: K62.5 Hemorrhage of anus and rectum (principal); R19.7 Diarrhea, unspecified; R10.11 Right upper quadrant pain
CPT/HCPCS: 80053; 83690; 85025; 86258; 86364

== ENCOUNTER → 2023-10-05 | Outpatient (CLI) | payer OTHER ==
[2023-10-09 16:10] LABS: CALPROTECTIN,FECAL 12 ug/g (<=49)
[2023-10-09 16:14] LABS: PANCREATIC ELASTASE,FECAL >800 ug/g (>=100)
== END | disposition home or self-care (01) ==
LOC: LAB SHORT 17:11 → LAB 17:11
PROVIDERS: Family Medicine
DX: R10.11 Right upper quadrant pain (principal); R19.7 Diarrhea, unspecified
CPT/HCPCS: 87338

== ENCOUNTER 2023-11-30 19:59 | Emergency (ER) | payer OTHER ==
[~2023-11-30] VITALS: Ht 175.3 cm; Wt 151.5 kg
[2023-11-30 20:06] VITALS: BP 143/101
[2023-11-30 20:52] LABS: Influenza A, PCR NEGATIVE (NEGATIVE); Influenza B, PCR NEGATIVE (NEGATIVE); Resp Syncytial Virus, PCR NEGATIVE (NEGATIVE); SARS-Cov-2 (COVID-19) PCR, MMC NEGATIVE (NEGATIVE)
[2023-11-30] MEDS ORDERED: RX Prepack 6 Tabs Oxycodone 5mg UD ONE (23:55)
[2023-11-30] MEDS ORDERED: METPRE4DP PO (23:57)
== END 2023-12-01 00:51 | disposition home or self-care (01) ==
LOC: ER 19:59
PROVIDERS: Physician Assistant
DX: S29.011A Strain of muscle and tendon of front wall of thorax, initial encounter (principal); J42 Unspecified chronic bronchitis; X58.XXXA Exposure to other specified factors, initial encounter; Z88.8 Allergy status to other drugs, medicaments and biological substances; Z91.048 Other nonmedicinal substance allergy status; Z79.899 Other long term (current) drug therapy
CPT/HCPCS: 0241U; 71046; A9270

== ENCOUNTER → 2024-04-15 | Outpatient (CLI) | payer OTHER ==
[~2024-04-15] MED LIST changes: +METPRE4DP PO
[2024-04-15 14:06] LABS: Bacterial Vaginosis PCR Negative (NEGATIVE); Candida Group, PCR NOT DETECTED (NOT DETECT); Candida glabrata-krusei, PCR NOT DETECTED (NOT DETECT)
== END ==
LOC: LAB SHORT 10:22 → LAB 10:22
PROVIDERS: Obstetrics & Gynecology
DX: N89.8 Other specified noninflammatory disorders of vagina (principal)
CPT/HCPCS: 87481; 87661; 87801

== ENCOUNTER 2024-09-11 09:42 | Emergency (ER) | payer OTHER ==
[~2024-09-11] VITALS: Ht 172.7 cm; Wt 158.8 kg
[~2024-09-11 09:42] MED LIST changes: -CEPH500 PO; -ESCI10 PO; -Hydrocortiso453.6 G1 TOP; -LOSA50 PO; -Methocarbamol500 MG PO; -NYSTOP15 GM TOP; -Percocet 5-3251 EACH PO; -RIZATRIPTAN10 M3 PO; -TRULICITY4.5 MG/0.5 SC
[2024-09-11 10:18] VITALS: BP 188/133
[2024-09-11 10:32] LABS: BASOPHILS ABSOLUTE AUTO 0.05 K/mm3 (0.00-0.23); BASOPHILS PERCENT AUTO 1 % (0-2); EOSINOPHILS ABSOLUTE AUTO 0.09 K/mm3 (0.00-0.68); EOSINOPHILS PERCENT AUTO 1 % (0-6); Hematocrit 50.5 % (33.0-51.0); Hemoglobin 16.7 g/dL (11.5-16.0); IMMATURE GRAN ABSOLUTE AUTO 0.02 K/mm3 (0.00-0.10); IMMATURE GRAN PERCENT AUTO 0 % (0-1); LYMPHOCYTES ABSOLUTE AUTO 1.66 K/mm3 (0.84-5.20); LYMPHOCYTES PERCENT AUTO 24 % (21-46); MONOCYTES ABSOLUTE AUTO 0.48 K/mm3 (0.16-1.47); MONOCYTES PERCENT AUTO 7 % (4-13); Mean Corpuscular HGB 27.5 pg (26.0-34.0); Mean Corpuscular HGB Conc 33.1 g/dL (31.5-36.5); Mean Corpuscular Volume 83 fL (80-100); Mean Platelet Volume 10.6 fL (9.1-12.4); NEUTROPHILS ABSOLUTE AUTO 4.59 K/mm3 (1.96-9.15); NEUTROPHILS PERCENT AUTO 67 % (41-73); Platelet Count 245 K/mm3 (150-400); Red Blood Cell Count 6.08 M/mm3 (3.80-5.20); White Blood Cell Count 6.89 K/mm3 (4.00-11.30)
[2024-09-11 11:07] LABS: Albumin, Blood 3.7 g/dL (3.4-5.0); Bilirubin, Total 0.8 mg/dL (0.1-1.0); Bun/Creatinine Ratio 17.4 (12.0-20.0); Calcium, Blood 9.7 mg/dL (8.5-10.1); Creatinine, Blood 0.69 mg/dL (0.40-1.00); Globulin, Blood 3.8 g/dL (2.2-4.0); Potassium, Blood 4.1 mmol/L (3.5-5.5); Total Protein, Blood 7.5 g/dL (6.4-8.2)
[2024-09-12] MEDS ORDERED: LOSA50 PO (12:54)
[2024-09-12] MEDS ORDERED: TRULICITY4.5 MG/0.5 SC (19:12)
[2024-09-12] MEDS ORDERED: ESCI10 PO (19:13)
[2024-09-12] MEDS ORDERED: Methocarbamol500 MG PO (19:14)
[2024-09-12] MEDS ORDERED: RIZATRIPTAN10 M3 PO (19:15)
[2024-09-12] MEDS ORDERED: NYSTOP15 GM TOP (19:16)
[2024-09-12] MEDS ORDERED: Hydrocortiso453.6 G1 TOP (19:17)
== END 2024-09-11 12:36 | disposition left against medical advice (07) ==
LOC: ER 09:42
PROVIDERS: Physician Assistant
DX: R07.89 Other chest pain (principal); R42 Dizziness and giddiness; Z53.29 Procedure and treatment not carried out because of patient's decision for other reasons
CPT/HCPCS: 71046; 80053; 83880; 84484; 85025; 85379; 93005; 93010; 99282-25

== ENCOUNTER 2024-09-11 18:24 | Observation (INO) | payer OTHER ==
[~2024-09-11] VITALS: Ht 175.3 cm; Wt 155.6 kg
[2024-09-11] MEDS ORDERED: Enoxaparin 40 MG/0.4 ML SYR SC ONE (20:30)
[2024-09-11] MEDS ORDERED: Morphine Sulfate 4 MG/1 ML Injection IV ONE (20:30)
[2024-09-11] MEDS ORDERED: Ondansetron HCl 2 MG / ML 2ML Vial IV ONE (20:30)
[2024-09-11] MEDS ORDERED: FLU VACC TS2024-25(6MOS UP)/PF 45 MCG/0.5 ML SYRINGE IM ONE (21:20)
[2024-09-11] MEDS ORDERED: Albuterol 2.5 MG/3 ML VIAL INH PRN (21:20)
[2024-09-11] MEDS ORDERED: Enoxaparin 100 MG/ML 1ML SYR SC ONE (21:45)
[2024-09-11] MEDS ORDERED: Enoxaparin 150 MG/ML 1ML SYR SC ONE (21:55)
[2024-09-11 23:10] VITALS: BP 128/76
[2024-09-11] MEDS ORDERED: OxyCODONE 5 mg/Acetamin 325 mg TABLET PO PRN (23:50)
[2024-09-11] MEDS ORDERED: Acetaminophen 500 MG Tab PO PRN (23:50)
[2024-09-12] MEDS ORDERED: DiphenhydrAMINE HCL 25 MG Cap PO PRN (00:10)
[2024-09-12] MEDS ORDERED: Calcium Carbonate 500 MG Tab Chew PO PRN (03:40)
[2024-09-12 03:57] VITALS: BP 129/92
--- NOTE | 2024-09-12 05:04 | NUR ---
REC'D PT FROM ER ACCOMPANIED BY STAFF, ORIENTED TO ROOM AND CALL LIGHT SYSTEM. AAOX4, USES CALL LIGHT FOR NEEDS. AMBULTAES TO BR AND USES CALL LIGHT IF NEEDED. C/O ESCOBAR/PAIN AND HEARTBURN, ORDERS REC'D. ALBUTEROL/VENTOLIN INHALER EASED SOB. WEARS CPAP @ HOME FOR 1-3 HR DEPENDING ON TOLERING. OPTED FOR 2L O2 VIA NC OVERNIGHT BECAUSE CPAP MAKE HER FEEL SUFOCATED AND SOB WORSE. PT PREFERS LOVENOX ON DC INSTEAD OF XARELTO IF INSURANCE ALLOWS.
[2024-09-12] MEDS ORDERED: Insulin Human Lispro 100 Units/ML 3ML Syringe SC SCH (07:30)
[2024-09-12 07:33] VITALS: BP 142/101
[2024-09-12] MEDS ORDERED: Enoxaparin 150 MG/ML 1ML SYR SC SCH (09:00)
[2024-09-12] MEDS ORDERED: SUMAtriptan Succinate 25 MG Tab PO PRN (11:10)
[2024-09-12] MEDS ORDERED: Metoprolol Succinate 25 MG TABCR PO ONE (12:35)
[2024-09-12] MEDS ORDERED: Levothyroxine Sodium 0.1 MG Tab PO ONE (12:35)
[2024-09-12] MEDS ORDERED: LOSA50 PO (12:54)
[2024-09-12] MEDS ORDERED: Losartan Potassium 50 MG Tab PO SCH (13:00)
[2024-09-12 13:14] VITALS: BP 158/102
[2024-09-12 14:56] VITALS: BP 155/95
[2024-09-12] MEDS ORDERED: Sennosides 8.6 MG Tab PO PRN (17:05)
--- NOTE | 2024-09-12 18:28 | NUR ---
SHIFT SUMMARY PT AWAKE DURING SHIFT REPORT. PLEASANT AND CO-OP WITH CARE. ADMITTED ON NOC SHIFT FOR BL P.E.'S. PT WITH HX OF FACTOR VIII DEFICIENCY; ON XARELTO. DR CASTREJON IN TO SEE PT AND DISCUSS PLAN OF CARE. HOME MEDS ORDERED AND GIVEN PER EMAR. ECHO DONE IN . PT TO STAY THE NIGHT, REVIEW ECHO IN AM AND FOLLOW UP WITH HEMATOLOGY. LOVENOX GIVEN TODAY PER EMAR. FAMILY IN MOST OF THE DAY WITH SEVERAL OTHER VISITORS IN AND OUT WELL. DENIES NEEDS AT THIS TIME. CALL LT IN REACH.
[2024-09-12] MEDS ORDERED: TRULICITY4.5 MG/0.5 SC (19:12)
[2024-09-12] MEDS ORDERED: ESCI10 PO (19:13)
[2024-09-12] MEDS ORDERED: Methocarbamol500 MG PO (19:14)
[2024-09-12] MEDS ORDERED: RIZATRIPTAN10 M3 PO (19:15)
[2024-09-12] MEDS ORDERED: NYSTOP15 GM TOP (19:16)
[2024-09-12] MEDS ORDERED: Hydrocortiso453.6 G1 TOP (19:17)
[2024-09-12 19:27] VITALS: BP 150/88
[2024-09-13 01:07] VITALS: BP 161/106
[2024-09-13 05:06] LABS: Hematocrit 43.4 % (33.0-51.0); Hemoglobin 14.2 g/dL (11.5-16.0)
[2024-09-13 05:47] LABS: Bun/Creatinine Ratio 11.7 (12.0-20.0); Calcium, Blood 8.9 mg/dL (8.5-10.1); Creatinine, Blood 0.85 mg/dL (0.40-1.00); Magnesium, Blood 2.2 mg/dL (1.6-2.4); Potassium, Blood 4.2 mmol/L (3.5-5.5)
[2024-09-13] MEDS ORDERED: Levothyroxine Sodium 0.1 MG Tab PO SCH (06:00)
[2024-09-13 07:10] VITALS: BP 177/126
[2024-09-13 07:12] VITALS: BP 154/117
[2024-09-13] MEDS ORDERED: Rivaroxaban 10 MG Tab PO SCH (09:00)
[2024-09-13] MEDS ORDERED: Atorvastatin 40 MG Tab PO SCH (09:00)
[2024-09-13] MEDS ORDERED: Metoprolol Succinate 25 MG TABCR PO SCH (09:00)
[2024-09-13] MEDS ORDERED: Enoxaparin 150 MG/ML 1ML SYR SC ONE (11:00)
[2024-09-13] MEDS ORDERED: XARELTO10 M1 PO (12:35)
[2024-09-13] MEDS ORDERED: Percocet 5-3251 EACH PO (12:42)
[2024-09-13] MEDS ORDERED: ENOX100I SC (12:44)
[2024-09-13] MEDS ORDERED: CEPH500 PO (12:44)
--- NOTE | 2024-09-13 14:24 | NUR ---
DISCHARGE SUMMARY PATIENT EDUCATED ON DISCHARGE INSTRUCTIONS AND NEW PRESCRIPTIONS. CALLED IN CHANGE OF DOSE TO [facility], REST WERE FAXED. HARD SCRIPT SENT [facility] PT. IV REMOVED. PT TAKEN DOWN TO PERSONAL VEHICLE BY ADAM. NEO GATHERED AND RETURNED.
== END 2024-09-13 14:38 | disposition home or self-care (01) ==
LOC: ER 18:24 → MEDS 18:25 → ERHOLD 18:25 → MEDS 18:25 → ERHOLD 22:58 → MEDS 23:00 → ENPENDDIS 09-13 11:42 → MEDS 09-13 14:38
PROVIDERS: Hospitalist; ADMIT Internal Medicine
DX: I26.99 Other pulmonary embolism without acute cor pulmonale (principal); I82.431 Acute embolism and thrombosis of right popliteal vein; I82.411 Acute embolism and thrombosis of right femoral vein; D66 Hereditary factor VIII deficiency; E11.9 Type 2 diabetes mellitus without complications; I10 Essential (primary) hypertension; G47.33 Obstructive sleep apnea (adult) (pediatric); E89.0 Postprocedural hypothyroidism; F17.200 Nicotine dependence, unspecified, uncomplicated; R07.89 Other chest pain; R42 Dizziness and giddiness; M47.819 Spondylosis without myelopathy or radiculopathy, site unspecified; E66.01 Morbid (severe) obesity due to excess calories; Z68.43 Body mass index [BMI] 50.0-59.9, adult; Z79.4 Long term (current) use of insulin; Z79.01 Long term (current) use of anticoagulants; Z79.890 Hormone replacement therapy; Z79.899 Other long term (current) drug therapy; Z88.6 Allergy status to analgesic agent; Z88.8 Allergy status to other drugs, medicaments and biological substances; Z91.048 Other nonmedicinal substance allergy status; Z53.29 Procedure and treatment not carried out because of patient's decision for other reasons
CPT/HCPCS: 36415; 71046; 71260; 80048; 80053; 82947; 83735; 83880; 84484; 85014; 85018; 85025; 85379; 90471; 90656; 93005; 93010; 93970; 94640; 94664; 94762; 96372; 96372-59; 96374; 96375; 99282-25; 99285-25; A9270; C8929; G0378; J1650; J2270; J2405; Q9957; Q9967

== ENCOUNTER → 2024-09-11 | Outpatient (CLI) | payer OTHER ==
[~2024-09-11] MED LIST changes: +Bisoprolol Fuma10 MG PO; -Bisoprolol Fumar5 MG PO; +CEPH500 PO; +ESCI10 PO; +Hydrocortiso453.6 G1 TOP; +LOSA50 PO; +Methocarbamol500 MG PO; +NYSTOP15 GM TOP; +Percocet 5-3251 EACH PO; +RIZATRIPTAN10 M3 PO; +TRULICITY4.5 MG/0.5 SC; -VITAMIN D310 MC4 PO; +VITAMIN D31250 MC2 PO; +XARELTO10 M1 PO; -XARELTO20 MG PO
== END | disposition home or self-care (01) ==
LOC: LAB SHORT 17:43 → LAB 17:43
DX: R07.9 Chest pain, unspecified (principal)
CPT/HCPCS: 84484

== ENCOUNTER → 2024-09-23 | Outpatient (CLI) | payer OTHER ==
[~2024-09-23] MED LIST changes: +CEPH500 PO; +ESCI10 PO; +Hydrocortiso453.6 G1 TOP; +LOSA50 PO; +Methocarbamol500 MG PO; +NYSTOP15 GM TOP; +Percocet 5-3251 EACH PO; +RIZATRIPTAN10 M3 PO; +TRULICITY4.5 MG/0.5 SC
[2024-09-23 17:32] LABS: BASOPHILS ABSOLUTE AUTO 0.08 K/mm3 (0.00-0.23); BASOPHILS PERCENT AUTO 1 % (0-2); EOSINOPHILS ABSOLUTE AUTO 0.07 K/mm3 (0.00-0.68); EOSINOPHILS PERCENT AUTO 1 % (0-6); Hematocrit 44.1 % (33.0-51.0); Hemoglobin 14.9 g/dL (11.5-16.0); IMMATURE GRAN ABSOLUTE AUTO 0.03 K/mm3 (0.00-0.10); IMMATURE GRAN PERCENT AUTO 0 % (0-1); LYMPHOCYTES ABSOLUTE AUTO 1.81 K/mm3 (0.84-5.20); LYMPHOCYTES PERCENT AUTO 17 % (21-46); MONOCYTES ABSOLUTE AUTO 0.74 K/mm3 (0.16-1.47); MONOCYTES PERCENT AUTO 7 % (4-13); Mean Corpuscular HGB 28.1 pg (26.0-34.0); Mean Corpuscular HGB Conc 33.8 g/dL (31.5-36.5); Mean Corpuscular Volume 83 fL (80-100); Mean Platelet Volume 11.7 fL (9.1-12.4); NEUTROPHILS ABSOLUTE AUTO 7.69 K/mm3 (1.96-9.15); NEUTROPHILS PERCENT AUTO 74 % (41-73); Platelet Count 308 K/mm3 (150-400); RDW Coefficient Variation 14.5 % (11.7-14.2); Red Blood Cell Count 5.31 M/mm3 (3.80-5.20); White Blood Cell Count 10.42 K/mm3 (4.00-11.30)
[2024-09-23 17:44] LABS: Albumin, Blood 3.4 g/dL (3.4-5.0); Albumin/Globulin Ratio 0.9 (0.8-1.8); Bilirubin, Direct 0.2 mg/dL (0.0-0.3); Bilirubin, Indirect 0.5 mg/dL (0.1-0.7); Bilirubin, Total 0.7 mg/dL (0.1-1.0); Bun/Creatinine Ratio 18.7 (12.0-20.0); Calcium, Blood 9.4 mg/dL (8.5-10.1); Creatinine, Blood 0.7 mg/dL (0.40-1.00); Globulin, Blood 3.6 g/dL (2.2-4.0); Phosphorus, Blood 3.5 mg/dL (2.5-4.9); Potassium, Blood 3.8 mmol/L (3.5-5.5)
== END ==
LOC: LAB SHORT 16:05 → LAB 16:05
PROVIDERS: Family Medicine
DX: E11.59 Type 2 diabetes mellitus with other circulatory complications (principal)
CPT/HCPCS: 80053; 82248; 84100; 85025

== ENCOUNTER 2024-10-08 03:38 | Day surgery (SDC) | payer OTHER ==
[2024-10-08] MEDS ORDERED: Cosyntropin 0.25 MG / ML 1ML Vial IV ONE (07:00)
[2024-10-08] MEDS ORDERED: Cosyntropin 0.25 MG / ML 1ML Vial IM SCH (07:00)
[2024-10-08 08:34] VITALS: BP 167/122
[2024-10-08] MEDS ORDERED: GABA300 PO (08:54)
== END 2024-10-08 10:04 | disposition home or self-care (01) ==
LOC: ATC 03:38
DX: R79.89 Other specified abnormal findings of blood chemistry (principal); M70.61 Trochanteric bursitis, right hip; M70.62 Trochanteric bursitis, left hip; I82.401 Acute embolism and thrombosis of unspecified deep veins of right lower extremity; D68.59 Other primary thrombophilia; I26.99 Other pulmonary embolism without acute cor pulmonale; I82.531 Chronic embolism and thrombosis of right popliteal vein; Z88.8 Allergy status to other drugs, medicaments and biological substances
CPT/HCPCS: 80400; 82533; 93971; 96374; J0834

== ENCOUNTER → 2024-11-10 | Outpatient (CLI) | payer OTHER ==
[2024-11-10 19:04] LABS: BASOPHILS ABSOLUTE AUTO 0.06 K/mm3 (0.00-0.23); BASOPHILS PERCENT AUTO 1 % (0-2); EOSINOPHILS ABSOLUTE AUTO 0.09 K/mm3 (0.00-0.68); EOSINOPHILS PERCENT AUTO 1 % (0-6); Hematocrit 42.1 % (33.0-51.0); IMMATURE GRAN ABSOLUTE AUTO 0.03 K/mm3 (0.00-0.10); IMMATURE GRAN PERCENT AUTO 0 % (0-1); LYMPHOCYTES ABSOLUTE AUTO 1.73 K/mm3 (0.84-5.20); LYMPHOCYTES PERCENT AUTO 19 % (21-46); MONOCYTES ABSOLUTE AUTO 0.58 K/mm3 (0.16-1.47); MONOCYTES PERCENT AUTO 7 % (4-13); Mean Corpuscular HGB 27.5 pg (26.0-34.0); Mean Corpuscular HGB Conc 33.3 g/dL (31.5-36.5); Mean Corpuscular Volume 83 fL (80-100); Mean Platelet Volume 11.4 fL (9.1-12.4); NEUTROPHILS ABSOLUTE AUTO 6.48 K/mm3 (1.96-9.15); NEUTROPHILS PERCENT AUTO 72 % (41-73); Platelet Count 295 K/mm3 (150-400); RDW Coefficient Variation 14.7 % (11.7-14.2); Red Blood Cell Count 5.09 M/mm3 (3.80-5.20); White Blood Cell Count 8.97 K/mm3 (4.00-11.30)
[2024-11-10 20:33] LABS: Alanine Aminotransfer (ALT/SGP 57 U/L (12-78); Albumin, Blood 3.2 g/dL (3.4-5.0); Albumin/Globulin Ratio 0.9 (0.8-1.8); Alk Phos 115 U/L (50-136); Anion Gap 11 mmol/L (3-11); Aspartate Aminotrans (AST/SGOT 26 U/L (12-37); Bilirubin, Total 0.6 mg/dL (0.1-1.0); Blood Urea Nitrogen 13 mg/dL (8-24); Bun/Creatinine Ratio 21.4 (12.0-20.0); CHOL/HDL RATIO 2.6; CO2, Blood 25 mmol/L (21-32); Calcium, Blood 9.5 mg/dL (8.5-10.1); Chloride, Blood 105 mmol/L (98-108); Cholesterol 109 mg/dL (50-200); Creatinine, Blood 0.61 mg/dL (0.40-1.00); Globulin, Blood 3.7 g/dL (2.2-4.0); Glomerular Filtration Rate 119 (60-); Glucose, Blood 146 mg/dL (70-99); HDL Cholesterol 42 mg/dL (>39); LDL/HDL RATIO 1.2; Low Density Lipoprotein Chol 52 mg/dL (0-110); Potassium, Blood 3.8 mmol/L (3.5-5.5); Sodium, Blood 137 mmol/L (136-145); Total Protein, Blood 6.9 g/dL (6.4-8.2); Triglycerides 77 mg/dL (30-140); Very Low Density Lipoprot Chol 15 mg/dL (6-28)
== END ==
LOC: LAB SHORT 18:03 → LAB 18:03
PROVIDERS: Family Medicine
DX: I10 Essential (primary) hypertension (principal)
CPT/HCPCS: 80053; 80061; 85025

== ENCOUNTER → 2025-01-01 | Outpatient (CLI) | payer OTHER ==
[2025-01-01 16:47] LABS: BASOPHILS ABSOLUTE AUTO 0.07 K/mm3 (0.00-0.23); BASOPHILS PERCENT AUTO 1 % (0-2); EOSINOPHILS ABSOLUTE AUTO 0.06 K/mm3 (0.00-0.68); EOSINOPHILS PERCENT AUTO 1 % (0-6); Hematocrit 44.7 % (33.0-51.0); Hemoglobin 14.3 g/dL (11.5-16.0); IMMATURE GRAN ABSOLUTE AUTO 0.02 K/mm3 (0.00-0.10); IMMATURE GRAN PERCENT AUTO 0 % (0-1); LYMPHOCYTES ABSOLUTE AUTO 1.73 K/mm3 (0.84-5.20); LYMPHOCYTES PERCENT AUTO 22 % (21-46); MONOCYTES ABSOLUTE AUTO 0.52 K/mm3 (0.16-1.47); MONOCYTES PERCENT AUTO 7 % (4-13); Mean Corpuscular HGB 27.4 pg (26.0-34.0); Mean Corpuscular Volume 86 fL (80-100); Mean Platelet Volume 11.4 fL (9.1-12.4); NEUTROPHILS ABSOLUTE AUTO 5.48 K/mm3 (1.96-9.15); NEUTROPHILS PERCENT AUTO 69 % (41-73); Platelet Count 315 K/mm3 (150-400); RDW Coefficient Variation 14.4 % (11.7-14.2); RDW Standard Deviation 44.8 fL (35.1-46.3); Red Blood Cell Count 5.21 M/mm3 (3.80-5.20); White Blood Cell Count 7.88 K/mm3 (4.00-11.30)
[2025-01-01 19:52] LABS: Alanine Aminotransfer (ALT/SGP 49 U/L (12-78); Albumin, Blood 3.2 g/dL (3.4-5.0); Albumin/Globulin Ratio 0.9 (0.8-1.8); Alk Phos 123 U/L (50-136); Anion Gap 12 mmol/L (3-11); Aspartate Aminotrans (AST/SGOT 20 U/L (12-37); Bilirubin, Total 0.5 mg/dL (0.1-1.0); Blood Urea Nitrogen 15 mg/dL (8-24); Bun/Creatinine Ratio 24.7 (12.0-20.0); CO2, Blood 24 mmol/L (21-32); Calcium, Blood 8.8 mg/dL (8.5-10.1); Chloride, Blood 104 mmol/L (98-108); Creatinine, Blood 0.61 mg/dL (0.40-1.00); Globulin, Blood 3.4 g/dL (2.2-4.0); Glomerular Filtration Rate 119 (60-); Glucose, Blood 158 mg/dL (70-99); Potassium, Blood 3.6 mmol/L (3.5-5.5); Sodium, Blood 136 mmol/L (136-145); Thyroid Stimulating Hormone <0.005 uIU/mL (0.360-4.800); Total Protein, Blood 6.6 g/dL (6.4-8.2)
== END ==
LOC: LAB SHORT 13:57 → LAB 13:57
PROVIDERS: Family Medicine
DX: R53.83 Other fatigue (principal)
CPT/HCPCS: 80053; 82306; 84443; 85025

== ENCOUNTER → 2025-01-15 | Outpatient (CLI) | payer OTHER | LOC: LAB 13:14 → LAB SHORT 13:14 | DX: R13.10 Dysphagia, unspecified (principal) | CPT/HCPCS: 87081 ==

== ENCOUNTER 2025-02-17 21:20 | Emergency (ER) | payer OTHER ==
[~2025-02-17] VITALS: Ht 175.3 cm; Wt 154.2 kg
[2025-02-17 21:25] VITALS: BP 175/125
[2025-02-17] MEDS ORDERED: Diflucan150 MG PO (21:36)
== END 2025-02-17 21:32 | disposition home or self-care (01) ==
LOC: ER 21:20
DX: L30.4 Erythema intertrigo (principal); Z79.899 Other long term (current) drug therapy; Z79.890 Hormone replacement therapy; Z79.01 Long term (current) use of anticoagulants; I10 Essential (primary) hypertension; J45.909 Unspecified asthma, uncomplicated; F17.200 Nicotine dependence, unspecified, uncomplicated
CPT/HCPCS: 99282

== ENCOUNTER → 2025-04-22 | Outpatient (CLI) | payer OTHER ==
[~2025-04-22] MED LIST changes: +Diflucan150 MG PO
== END | disposition home or self-care (01) ==
LOC: LAB SHORT 11:11 → LAB 11:11
PROVIDERS: Obstetrics & Gynecology
DX: Z01.419 Encounter for gynecological examination (general) (routine) without abnormal findings (principal)
CPT/HCPCS: 87624; G0123; G0145

== ENCOUNTER 2025-06-07 11:34 | Emergency (ER) | payer OTHER ==
[~2025-06-07] VITALS: Ht 175.3 cm; Wt 159.7 kg
[2025-06-07 11:37] VITALS: BP 193/129
[2025-06-07] MEDS ORDERED: HYDROcodone 5-APAP 325 TAB PO ONE (12:50)
[2025-06-07] MEDS ORDERED: HYDR1TAB94 PO (13:03)
== END 2025-06-07 13:18 | disposition home or self-care (01) ==
LOC: ER 11:34
DX: M25.562 Pain in left knee (principal); I10 Essential (primary) hypertension; J45.909 Unspecified asthma, uncomplicated; E03.9 Hypothyroidism, unspecified; F17.200 Nicotine dependence, unspecified, uncomplicated; Z91.09 Other allergy status, other than to drugs and biological substances; Z88.6 Allergy status to analgesic agent; Z88.8 Allergy status to other drugs, medicaments and biological substances; Z79.890 Hormone replacement therapy; Z79.899 Other long term (current) drug therapy
CPT/HCPCS: 73562-LT; 99283-25; A9270

== ENCOUNTER → 2025-07-07 | Outpatient (CLI) | payer OTHER ==
[2025-07-07 12:40] LABS: Hematocrit 45.1 % (33.0-51.0); Hemoglobin 14.7 g/dL (11.5-16.0); Mean Corpuscular HGB Conc 32.6 g/dL (31.5-36.5); Mean Corpuscular Volume 85 fL (80-100); NRBC ABSOLUTE 0.00 K/mm3 (0.00-0.02); NRBC Auto 0.0 /100 WBC (0.0-0.2); Platelet Count 302 K/mm3 (150-400); RDW Coefficient Variation 14.6 % (11.7-14.2); RDW Standard Deviation 44.9 fL (35.1-46.3)
[2025-07-07 13:15] LABS: Alanine Aminotransfer (ALT/SGP 45 U/L (12-78); Albumin, Blood 3.5 g/dL (3.4-5.0); Albumin/Globulin Ratio 1.1 (0.8-1.8); Anion Gap 9 mmol/L (3-11); Aspartate Aminotrans (AST/SGOT 15 U/L (12-37); Bilirubin, Total 0.7 mg/dL (0.1-1.0); Blood Urea Nitrogen 15 mg/dL (8-24); CHOL/HDL RATIO 2.5; CO2, Blood 25 mmol/L (21-32); Calcium, Blood 8.9 mg/dL (8.5-10.1); Chloride, Blood 106 mmol/L (98-108); Cholesterol 116 mg/dL (50-200); Creatinine, Blood 0.72 mg/dL (0.40-1.00); Globulin, Blood 3.2 g/dL (2.2-4.0); Glucose, Blood 204 mg/dL (70-99); HDL Cholesterol 47 mg/dL (>39); LDL/HDL RATIO 1.1; Low Density Lipoprotein Chol 51 mg/dL (0-110); Potassium, Blood 3.9 mmol/L (3.5-5.5); Sodium, Blood 136 mmol/L (136-145); Thyroid Stimulating Hormone 4.170 uIU/mL (0.360-4.800); Total Protein, Blood 6.7 g/dL (6.4-8.2); Triglycerides 89 mg/dL (30-140); Very Low Density Lipoprot Chol 17 mg/dL (6-28)
== END ==
LOC: LAB 09:30 → LAB SHORT 09:30
DX: I42.2 Other hypertrophic cardiomyopathy (principal); I47.29 Other ventricular tachycardia; I10 Essential (primary) hypertension; I51.89 Other ill-defined heart diseases
CPT/HCPCS: 80053; 80061; 84443; 85027

== ENCOUNTER 2025-07-16 12:52 | Day surgery (SDC) | payer OTHER ==
[2025-07-16] VITALS (10 sets, daily range): BP systolic 108–141; BP diastolic 59–93
[~2025-07-16] VITALS: Ht 175.3 cm; Wt 159.8 kg
[~2025-07-16 12:52] MED LIST changes: +AMLO5 PO; +ARTHRITIS PAIN150 GM TOP; +Depo-Prove150 MG/11 IM; +FAMO20 PO; +GALLIFREY5 MG PO; +HYDCOR10 PO; +Ketoconazole15 GM TOP
--- NOTE | 2025-07-16 15:47 | NUR ---
Ambulatory in Day Surgery History, Chart, Medications and Allergies reviewed before start of procedure. Lungs clear T/O to Auscultation. COARSE NPC. Patient confirms NPO status and agrees with scheduled surgery. Pre-Op teaching done. Pt verbalizes understanding. Patient States Post-Procedure ride home has been arranged. [place] RING LEFT HAND TAPED, JEWELRY FORM SIGNED.
[2025-07-16] MEDS ORDERED: Ondansetron HCl 2 MG / ML 2ML Vial IV PRN (15:50)
[2025-07-16] MEDS ORDERED: Albuterol 2.5 MG/3 ML VIAL INH PRN (15:50)
[2025-07-16] MEDS ORDERED: HYDROmorphone HCl/Pf 1MG SYR IV PRN ×2 (15:50→15:55)
[2025-07-16] MEDS ORDERED: Metoclopramide HCl 5MG / ML 2ML Vial IV PRN (15:50)
[2025-07-16] MEDS ORDERED: FentaNYL Citrate 50 MCG/ML 2 ML Injection IV PRN ×2 (15:55)
[2025-07-16] MEDS ORDERED: ePHEDrine Sulfate 50 MG/ML 1ML Injection IV PRN (15:55)
[2025-07-16] MEDS ORDERED: HydrALAZINE HCl 20 MG / ML 1ML Vial IV PRN (15:55)
[2025-07-16] MEDS ORDERED: Ketorolac Tromethamine 30mg Vial ONE (16:03)
[2025-07-16] MEDS ORDERED: ePHEDrine Sulfate 50 MG/ML 1ML Injection ONE (16:41)
[2025-07-16] MEDS ORDERED: SuccINYLCHOLINE Chloride 100 MG/5 ML 5MLSYR ONE (16:44)
[2025-07-16] MEDS ORDERED: Rocuronium Bromide 10 MG/ML 5ML Injection IV ONE (16:44)
[2025-07-16] MEDS ORDERED: FentaNYL Citrate 50 MCG/ML 2 ML Injection ONE (16:44)
[2025-07-16] MEDS ORDERED: Ondansetron HCl 2 MG / ML 2ML Vial ONE (16:44)
[2025-07-16] MEDS ORDERED: Dexamethasone Sod Phos 10 MG/ML 1ML VIAL ONE (16:44)
[2025-07-16] MEDS ORDERED: Midazolam HCl 1MG / ML 2ML Vial ONE (16:44)
[2025-07-16] MEDS ORDERED: Sugammadex Sodium 200 MG/2ML SDV (100 MG/ML) ONE (16:46)
[2025-07-16] MEDS ORDERED: HYDROmorphone HCl/Pf 1MG SYR ONE (17:45)
[2025-07-16] MEDS ORDERED: Metoclopramide HCl 5MG / ML 2ML Vial ONE (17:56)
[2025-07-16] MEDS ORDERED: OxyCODONE 5 mg/Acetamin 325 mg TABLET PO PRN (18:15)
--- NOTE | 2025-07-16 18:49 | NUR ---
Patient up to Ambulate independently. Gait steady. Patient States Post-Procedure ride home has been arranged. Discharged via wheelchair to private car for ride home. Discharge instructions reviewed with patient. Patient verbalizes understanding. Copy given to patient to take home.
== END 2025-07-16 23:00 | disposition home or self-care (01) ==
LOC: ORSCMMR 12:52 → ORD 14:15 → ORSCMMR 23:00
PROVIDERS: Obstetrics & Gynecology
PROC: 0UDB8ZX Extraction of Endometrium, Via Natural or Artificial Opening Endoscopic, Diagnostic (ICD-10-PCS; principal; 2025-07-16 16:00)
DX: N93.9 Abnormal uterine and vaginal bleeding, unspecified (principal); E28.2 Polycystic ovarian syndrome; E66.01 Morbid (severe) obesity due to excess calories; Z68.43 Body mass index [BMI] 50.0-59.9, adult; G47.33 Obstructive sleep apnea (adult) (pediatric); Z87.891 Personal history of nicotine dependence; I10 Essential (primary) hypertension; Z86.718 Personal history of other venous thrombosis and embolism; Z79.01 Long term (current) use of anticoagulants; J45.909 Unspecified asthma, uncomplicated; Z85.850 Personal history of malignant neoplasm of thyroid; D68.51 Activated protein C resistance; F41.9 Anxiety disorder, unspecified; F32.A Depression, unspecified; F43.10 Post-traumatic stress disorder, unspecified; Z79.899 Other long term (current) drug therapy
CPT/HCPCS: 82947; 88305; J0330; J1100; J1171; J1885; J2250; J2405; J2704; J2765; J3010; J7120

== ENCOUNTER 2025-09-06 10:45 | Observation (INO) | payer OTHER ==
[~2025-09-06] VITALS: Ht 175.3 cm; Wt 155.9 kg
[2025-09-06 11:27] LABS: BASOPHILS ABSOLUTE AUTO 0.06 K/mm3 (0.00-0.23); BASOPHILS PERCENT AUTO 1 % (0-2); EOSINOPHILS ABSOLUTE AUTO 0.08 K/mm3 (0.00-0.68); EOSINOPHILS PERCENT AUTO 1 % (0-6); Hematocrit 48.8 % (33.0-51.0); Hemoglobin 16.2 g/dL (11.5-16.0); IMMATURE GRAN ABSOLUTE AUTO 0.04 K/mm3 (0.00-0.10); IMMATURE GRAN PERCENT AUTO 1 % (0-1); LYMPHOCYTES ABSOLUTE AUTO 1.71 K/mm3 (0.84-5.20); LYMPHOCYTES PERCENT AUTO 19 % (21-46); MONOCYTES ABSOLUTE AUTO 0.67 K/mm3 (0.16-1.47); MONOCYTES PERCENT AUTO 8 % (4-13); Mean Corpuscular HGB Conc 33.2 g/dL (31.5-36.5); Mean Corpuscular Volume 84 fL (80-100); NEUTROPHILS ABSOLUTE AUTO 6.26 K/mm3 (1.96-9.15); NEUTROPHILS PERCENT AUTO 71 % (41-73); NRBC ABSOLUTE 0.00 K/mm3 (0.00-0.02); NRBC Auto 0.0 /100 WBC (0.0-0.2); Platelet Count 245 K/mm3 (150-400); RDW Coefficient Variation 14.7 % (11.7-14.2); RDW Standard Deviation 44.4 fL (35.1-46.3)
[2025-09-06 11:48] LABS: Alanine Aminotransfer (ALT/SGP 42.0 U/L (12-78); Albumin, Blood 3.6 g/dL (3.4-5.0); Albumin/Globulin Ratio 1.1 (0.8-1.8); Anion Gap 11.0 mmol/L (3-11); Aspartate Aminotrans (AST/SGOT 17.0 U/L (12-37); Bilirubin, Total 1.0 mg/dL (0.1-1.0); Blood Urea Nitrogen 21.0 mg/dL (8-24); CO2, Blood 24.0 mmol/L (21-32); Calcium, Blood 9.0 mg/dL (8.5-10.1); Chloride, Blood 104.0 mmol/L (98-108); Creatinine, Blood 0.7 mg/dL (0.40-1.00); Globulin, Blood 3.3 g/dL (2.2-4.0); Glucose, Blood 209.0 mg/dL (70-99); Potassium, Blood 4.1 mmol/L (3.5-5.5); Sodium, Blood 135.0 mmol/L (136-145); Total Protein, Blood 6.9 g/dL (6.4-8.2)
[2025-09-06 12:45] LABS: Anti-Xa UFH, PHA Monitoring 0.30 IU/mL; Prothrombin Time Results 11.3 Sec (9.7-11.5)
[2025-09-06] MEDS ORDERED: Magnesium Hydroxide Conc 10 ML UDC PO PRN (12:50)
[2025-09-06] MEDS ORDERED: FLU VACC TS2025-26(6MOS UP)/PF 45 MCG/0.5 ML SYRINGE IM SCH (12:50)
[2025-09-06] MEDS ORDERED: Dose Adjust by Pharmacy XX STA ×2 (12:59→22:01)
[2025-09-06] MEDS ORDERED: Heparin Sodium,Porcine/0.5 NS 500 ML IV SCH (13:00)
[2025-09-06] MEDS ORDERED: Heparin Sodium 5000 Units/ML 1ML MDV IV ONE ×2 (13:00→22:05)
[2025-09-06] MEDS ORDERED: Insulin Human Lispro 100 Units/ML 3ML Syringe SC SCH (14:00)
[2025-09-06] MEDS ORDERED: FentaNYL Citrate 50 MCG/ML 2 ML Injection IV ONE (15:00)
[2025-09-06] MEDS ORDERED: FentaNYL Citrate 50 MCG/ML 2 ML Injection IV PRN (15:00)
--- NOTE | 2025-09-06 15:05 | NUR ---
ASSUMPTION OF CARE PATIENT ARRIVED TO UNIT VIA GURNEY, PATIENT STOOD TO TRANSFER TO HOSPITAL BED. VSS, REPORTS SHORTNESS OF BREATH UPON EXERTION AND INTERMITTENT MILD CHEST PAIN. PATIENT DENIES N/V OR ABDOMINAL PAIN. RED FLUSHED CHEEKS NOTED, PATIENT REPORTS BASELINE. DR. KING AT BEDSIDE. HEPARIN GTT INFUSING. PATIENT IS LYING IN BED, BED IN LOWEST POSITION, CALL LIGHT WITHIN REACH.
[2025-09-06 15:08] VITALS: BP 134/94
[2025-09-06] MEDS ORDERED: TRULICITY1.5 MG/0.1 SC (15:23)
[2025-09-06] MEDS ORDERED: LISI20 PO (15:25)
[2025-09-06] MEDS ORDERED: HYDR1TAB94 PO (15:27)
[2025-09-06] MEDS ORDERED: AMLO5 PO (15:27)
[2025-09-06] MEDS ORDERED: HYDROcodone 5-APAP 325 TAB PO PRN (16:45)
[2025-09-06] MEDS ORDERED: Albuterol HFA200 ACT/6.7 GM INH INH PRN (17:20)
[2025-09-06] MEDS ORDERED: Lidocaine 4% 1 Patch TOP PRN (17:25)
[2025-09-06] MEDS ORDERED: Rizatriptan Benzoate 10 MG / TAB SoluTab SL PRN (17:25)
[2025-09-06] MEDS ORDERED: Miconazole Nitrate 2% 85 GM PWD TOP PRN (17:25)
--- NOTE | 2025-09-06 18:53 | NUR ---
SHIFT SUMMARY PATIENT IS ALERT AND ORIENTED, ABLE TO FOLLOW COMMANDS AND MAKE NEEDS KNOWN, ANSWERS ALL QUESTIONS APPROPRIATELY. VSS, TELE IN PLACE, SINUS 70'S, SPO2 >90% ON RA. PATIENT ENDORSES MILD CHEST PAIN AND SHORTNESS OF BREATH WITH EXERTION. PATIENT REPORTS SOME RELIEF WITH PHARMACOLOGICAL INTERVENTION. HEPARIN GTT INFUSING. PER DR. KING, SHE SPOKE WITH IR PROVIDER, NO PLAN FOR INTERVENTION AT THIS TIME, CONTINUE WITH HEPARIN GTT, ECHO TO BE PERFORMED. PATIENT DENIES ABDOMINAL PAIN N/V. PATIENT IS SBA TO BATHROOM FOR LINE MANAGEMENT AND SHORTNESS OF BREATH. PATIENT IS UP IN BED, BED IN LOWEST POSITION, CALL LIGHT WITHIN REACH.
[2025-09-06 20:27] VITALS: BP 144/83
[2025-09-06 23:40] VITALS: BP 150/89
[2025-09-07 04:29] VITALS: BP 158/97
[2025-09-07 04:33] LABS: BASOPHILS ABSOLUTE AUTO 0.05 K/mm3 (0.00-0.23); BASOPHILS PERCENT AUTO 1 % (0-2); EOSINOPHILS ABSOLUTE AUTO 0.11 K/mm3 (0.00-0.68); EOSINOPHILS PERCENT AUTO 2 % (0-6); Hematocrit 41.4 % (33.0-51.0); Hemoglobin 13.5 g/dL (11.5-16.0); IMMATURE GRAN ABSOLUTE AUTO 0.02 K/mm3 (0.00-0.10); IMMATURE GRAN PERCENT AUTO 0 % (0-1); LYMPHOCYTES ABSOLUTE AUTO 1.85 K/mm3 (0.84-5.20); LYMPHOCYTES PERCENT AUTO 26 % (21-46); MONOCYTES ABSOLUTE AUTO 0.64 K/mm3 (0.16-1.47); MONOCYTES PERCENT AUTO 9 % (4-13); Mean Corpuscular HGB Conc 32.6 g/dL (31.5-36.5); Mean Corpuscular Volume 85 fL (80-100); NEUTROPHILS ABSOLUTE AUTO 4.42 K/mm3 (1.96-9.15); NEUTROPHILS PERCENT AUTO 62 % (41-73); NRBC ABSOLUTE 0.00 K/mm3 (0.00-0.02); NRBC Auto 0.0 /100 WBC (0.0-0.2); Platelet Count 196 K/mm3 (150-400); RDW Coefficient Variation 14.8 % (11.7-14.2); RDW Standard Deviation 46.0 fL (35.1-46.3)
[2025-09-07 04:55] LABS: Alanine Aminotransfer (ALT/SGP 38.0 U/L (12-78); Albumin, Blood 2.9 g/dL (3.4-5.0); Albumin/Globulin Ratio 1.1 (0.8-1.8); Anion Gap 9.0 mmol/L (3-11); Aspartate Aminotrans (AST/SGOT 18.0 U/L (12-37); Bilirubin, Total 0.8 mg/dL (0.1-1.0); Blood Urea Nitrogen 23.0 mg/dL (8-24); CO2, Blood 24.0 mmol/L (21-32); Calcium, Blood 8.6 mg/dL (8.5-10.1); Chloride, Blood 106.0 mmol/L (98-108); Creatinine, Blood 0.65 mg/dL (0.40-1.00); Globulin, Blood 2.7 g/dL (2.2-4.0); Glucose, Blood 183.0 mg/dL (70-99); Potassium, Blood 4.0 mmol/L (3.5-5.5); Sodium, Blood 135.0 mmol/L (136-145); Total Protein, Blood 5.6 g/dL (6.4-8.2)
[2025-09-07] MEDS ORDERED: Dose Adjust by Pharmacy XX STA (05:04)
[2025-09-07] MEDS ORDERED: Insulin Human Lispro 100 Units/ML 3ML Syringe SC SCH (07:30)
--- NOTE | 2025-09-07 07:49 | NUR ---
SHIFT SUMMARY: PT IS A&OX4, PLEASANT AND COOPERATIVE WITH CARE. HYPERTENSIVE 158/97 ON RA, SPO2 >95%, 2L OXYGEN VIA NC, WHILE ASLEEP. PT DOES BECOME DYSPNEIC WITH ANY EXERTION. SR 80'S. C/O PAIN TO HER BACK, CHEST, AND BILAT HIPS, MEDICATED WITH PRN 5MG PO HYDROCODONE. ALSO PLACED A WAFFLE MATTRESS OVERLAY ON HER BED. SHE DID NOT GET MUCH REST WITH THIS RN BEING IN AND OUT OF HER ROOM FREQUENTLY TITRATING HEPARIN GTT AND CHECKING HER VITAL SIGNS. TOLERATING A REGULAR DIET. SBA TO BR. VOIDING LOURDES COLORED URINE. NO BM THIS SHIFT, PT DID REQUEST TO NOT TAKE HER COLACE LAST NIGHT, SHE HAS BEEN HAVING SOFT STOOLS AT HOME. PT ALSO STATES SHE HAS BEEN SPOTTING IRREGULARY THE LAST 3 MONTHS WITH HER MENSES. BED IN LOWEST POSITION, CALL LIGHT WITHIN REACH. CALLS APPROPRIATELY AND IS ABLE TO ADVOCATE NEEDS EFFECTIVELY.
[2025-09-07 07:54] VITALS: BP 136/90
--- NOTE | 2025-09-07 10:16 | NUR ---
AM NOTE: PATIENT ALERT AND ORIENTED. UP WITH SBA FOR SAFETY TO BATHROOM. MOVING ALL EXTREMITIES. USING CALL LIGHT FOR NEEDS. PERRLA. ON ROOM AIR SATING ABOVE 95%. SOB ON EXCERTION AND PAIN WITH DEEP INHILATION. PATIENT ENCOURAGED TO TAKE DEEP BREATHS AND EDUCATED ON RISK OF PNEUMONIA. PATIENT INSTRUCTED TO FOLLOW UP WITH CPAP SUPPLIER FOR BETTER FITTING MASK AND DISCUSSED IMPORTANCE OF CPAP COMPLIANCE. TELE SHOWING SR WITH HR 70-80'S. COMPLAINS OF 3/10 CHEST PAIN REGARDING PE. DENIES NEED FOR PAIN MEDICATION. PPP. HEPARIN GTT INFUSING PER EMAR. DR. KING TO BEDSIDE THIS MORNING AND ORDERS FOR ELIQUIS 10 MG PO NOW X1 AND TO STOP HEPARIN GTT AT 1200, WITH NO FURTHER BOLUSING. PHARMACY UPDATED. PPP. USHA ACE. ECHO COMPLETED THIS MORNING AND RESULTS PENDING. BOWL TONES PRESENT. ACHS BLOOD SUGARS IN PLACE. TOLERATING PO DIET WITHOUT ISSUES. UP TO BATHROOM TO VOID. ATTENDS IN PLACE. SKIN TRE WITH SCATTERED BRUISING. CALL LIGHT IN REACH. DENIES NEEDS AT THIS TIME. THIS RN ROUNDED WITH DR. MELVIN AND DR. KING THIS MORNING. POSSIBLE DISCHARGE HOME THIS AFTERNOON.
[2025-09-07 11:09] VITALS: BP 133/78
[2025-09-07] MEDS ORDERED: ELIQUIS5 M2 PO (12:33)
[2025-09-07] MEDS ORDERED: FAMO20 PO (12:33)
--- NOTE | 2025-09-07 13:01 | NUR ---
DISCHARGE: NO ACUTE CHANGES. HEPARIN GTT DISCONTINUED AT 1200. PATIENT FAMILY AT BEDSIDE FOR DISCHARGE INSTRUCTION. THIS RN EDUCATED ON NEW MEDICATION INCLUDING ELIQUIS AND PEPCID. THIS RN DISCUSSED ELIQUIS DOSING FOR 7 DAYS AND THEN DOSING THERAFTER. SIGNS AND SYMPTOMS OF WHEN TO RETURN. FOLLOW UP WITHIN 1 WEEK WITH [facility] CALLED TO CONFIRM ELIQUIS AVAILABLILITY. IV'S REMOVED WNL. PATIENT LEFT UNIT VIA WHEELCHAIR WITH ALL PERSONAL BELONGINGS. TELE RETURNED.
== END 2025-09-07 12:59 | disposition home or self-care (01) ==
LOC: ER 10:45 → ERHOLD 10:46 → EDBEDREQ 14:38 → PCU 15:04
PROVIDERS: Student in an Organized Health Care Education/Training Program; ADMIT Internal Medicine
DX: I26.99 Other pulmonary embolism without acute cor pulmonale (principal); I42.9 Cardiomyopathy, unspecified; E89.0 Postprocedural hypothyroidism; E24.9 Cushing's syndrome, unspecified; J44.9 Chronic obstructive pulmonary disease, unspecified; G89.29 Other chronic pain; M54.50 Low back pain, unspecified; F41.9 Anxiety disorder, unspecified; D68.69 Other thrombophilia; G47.33 Obstructive sleep apnea (adult) (pediatric); I87.2 Venous insufficiency (chronic) (peripheral); M70.72 Other bursitis of hip, left hip; M70.71 Other bursitis of hip, right hip; I11.9 Hypertensive heart disease without heart failure; E78.5 Hyperlipidemia, unspecified; E28.2 Polycystic ovarian syndrome; E11.69 Type 2 diabetes mellitus with other specified complication; E66.01 Morbid (severe) obesity due to excess calories; Z68.43 Body mass index [BMI] 50.0-59.9, adult; Z86.711 Personal history of pulmonary embolism; Z87.891 Personal history of nicotine dependence; Z79.890 Hormone replacement therapy; Z79.85 Long-term (current) use of injectable non-insulin antidiabetic drugs; Z79.01 Long term (current) use of anticoagulants; Z79.899 Other long term (current) drug therapy; Z88.6 Allergy status to analgesic agent; Z88.8 Allergy status to other drugs, medicaments and biological substances; Z91.048 Other nonmedicinal substance allergy status
CPT/HCPCS: 36415; 71260; 80053; 82947; 83880; 84484; 85025; 85520; 85610; 85730; 93005; 93010; 93308; 93321; 93970; 96374-59; 96376; 99285-25; A9270; G0378; J1644; Q9967